=== PATIENT | male | born 1985 | race African-American/Black ===

== ENCOUNTER 2016-11-26 20:55 | Emergency (ER) | payer OTHER ==
[~2016-11-26] VITALS: Ht 182.9 cm; Wt 128.4 kg
[~2016-11-26 20:55] MED LIST: ACET-1256 PO; ASPI325T39 PO; FLX10 PO; RXC5 PO; WLLXL300 PO; [UNRECOGNIZED DRUG - CODE] PO
[2016-11-26 21:21] VITALS: TEMP 36.7; Ht 182.9 cm; Wt 128.4 kg
[2016-11-26] MEDS ORDERED: KETOROLAC TROMETHAMINE 30 MG/ML VIAL IV STA (22:29)
[2016-11-26] MEDS ORDERED: OPTIRAY 320 IV PRN (22:45)
[2016-11-26 22:59] LABS: BASO % 0.2 %; BASO ABS # 0.01 K/uL (0-0.2); COMPLETE YES; IG% 0.2 %; LYMPH % 34.6 %; LYMPH ABS # 1.89 K/uL (1.2-3.4); MEAN CELL VOLUME 81.9 fL (80-100); MEAN CORPUSCULAR HEMOGLOBIN 28.4 pg (25-34); MEAN CORPUSCULAR HGB CONC 34.7 g/dl (32-36); MEAN PLATELET VOLUME 10.5 fL (7.4-10.4); MONO % 6.6 %; NEUT % 54.4 %; PLATELET COUNT 271 K/uL (130-400); RED BLOOD COUNT 5.25 M/uL (4.7-6.1); WHITE BLOOD COUNT 5.47 K/uL (4.8-10.8)
[2016-11-26] MEDS ORDERED: MULT-513 PO (23:03)
[2016-11-26] MEDS ORDERED: GLUCTAB18 PO (23:03)
[2016-11-26 23:16] LABS: BLOOD UREA NITROGEN 8 mg/dl (7-18); BUN/CREATININE RATIO 6.5 (10-20); C-REACTIVE PROTEIN < 0.29 mg/dl (0-0.29); CALCIUM 8.8 mg/dl (8.5-10.1); CARBON DIOXIDE 29 mmol/L (21-32); CHLORIDE 110 mmol/L (98-107); GLUCOSE 97 mg/dl (70-99); POTASSIUM 3.9 mmol/L (3.5-5.1); SODIUM 143 mmol/L (136-145)
[2016-11-27] MEDS ORDERED: CEFTRIAXONE SOD INJ 1 GM ADDVIAL IV STA (00:31)
--- NOTE | 2016-11-27 00:34 | EMERGENCY ROOM VISIT NOTE ---
ED Visit Note First contact with patient: 22:21 Staff note: I have seen and examined this patient. I have discussed this case with my PA and generally agree with the ED note and findings.
[2016-11-27] MEDS ORDERED: CEPHALEXIN 500MG HOME PACK 1 EA BTL PO ONE (00:45)
[2016-11-27] MEDS ORDERED: CEPH500C2 PO (01:10)
--- NOTE | 2016-11-27 01:16 | EMERGENCY ROOM VISIT NOTE ---
History First contact with patient: 22:21 Chief Complaint: NECK PAIN Stated Complaint: PUFFY NECK ON RT SIDE History of Present Illness The patient is a 31 year old male who presents to the Emergency Room with complaints of right-sided neck pain and swelling has been picking at a pimple to this area for the past few days to this area. Patient states he had a little bit of pus that came out of the pimple. Patient denies injury to this area, chest pain, dyspnea, neck stiffness, sore throat, cough, congestion, abdominal pain, night sweats, weight loss. He is tolerating by mouth fluids and food. No dysphasia. Review of Systems See HPI for pertinent positives & negatives. A total of 10 systems reviewed and were otherwise negative. Past Medical/Surgical History Medical Problems: (1) ASTHMA, UNSPECIFIED (2) BIPOL I DIS, MOST RECENT EPIS (OR CURRENT) MANIC, UNSPEC (3) FAM HX-DIABETES MELLITUS (4) FAM HX-PSYCHIATRIC COND (5) FAMILY HISTORY OF OTHER CARDIOVASCULAR DISEASES (6) HOMICIDAL IDEATION (7) HYPERTENSION NOS (8) Lumbar stenosis with neurogenic claudication (9) MIGRAINE UNSPECIFIED W/O INTRACT MGRN W/O STATUS MIGRAINOSUS (10) Schizoaffective disorder (11) SUICIDAL IDEATION (12) TOBACCO USE DISORDER Family History Diabetes mellitus Hypertension Social History Smoking Status: Current Every Day Smoker Alcohol Use: none Drug Use: none Marital Status: single Occupation Status: disabled Current/Historical Medications Scheduled Aspirin (Aspirin Ec), 650 MG PO PRN Cephalexin Monohydrate (Keflex), 500 MG PO QID Glucosamine-Chondroitin (Osteo Bi-Flex Regular Str), 1 TAB PO DAILY Multivitamins/Minerals (Mvi With Minerals), 1 TAB PO DAILY Allergies Coded Allergies: Risperidone (Verified Allergy, Severe, TONGUE SWELLS UP, 10/24/15) Beet (Verified Adverse Reaction, Unknown, VOMITS, 10/24/15) Fentanyl (Unverified Adverse Reaction, Unknown, constipation and vomiting , 10/24/15) Physical Exam Vital Signs Date Time Temp Pulse Resp B/P Pulse Ox O2 Delivery O2 Flow Rate FiO2 11/26/16 22:43 57 16 133/76 96 Room Air 11/26/16 21:21 36.7 55 20 128/81 96 Room Air Physical Exam VITALS: Vitals are noted on the nurse's note and reviewed by myself. Vital signs stable. GENERAL: Pleasant male, in no acute distress, nondiaphoretic, well-developed well-nourished. SKIN: Right-sided anterior neck with small papule that is slightly erythematous concerning for infection The rest of the skin was without rashes, erythema, edema, or bruising. There is no tenting of the skin. Capillary reflex less than 2 seconds. HEAD: Normocephalic atraumatic. EARS: External auditory canals clear, tympanic membranes pearly nettles without erythema or effusion bilaterally. EYES: Pupils equal round and reactive to light and accommodation. Conjunctivae without injection, sclerae without icterus. Extraocular movements intact. NOSE: Patent, turbinates without inflammation or discharge. No sinus tenderness. MOUTH: Mucous membranes moist. Pharynx without erythema or exudate. Uvula midline. Airway patent. Tongue does not deviate. NECK: Supple without nuchal rigidity. Right-sided cervical lymphadenopathy. No thyromegaly. Cervical spine is nontender. No JVD. No meningeal signs HEART: Regular rate and rhythm without murmurs gallops or rubs. LUNGS: Clear to auscultation bilaterally without wheezes, rales or rhonchi. No dullness to percussion. No retractions or accessory muscle use. ABDOMEN: Positive bowel sounds x 4. Normal tympanic percussion. Soft, nontender, without masses or organomegaly. Sierra sign negative. No guarding or rebound tenderness. MUSCULOSKELETAL: No muscle atrophy, erythema, or edema noted. NEURO: Patient was alert and oriented to person place and time. Normal sensation to light and sharp touch. No focal neurological deficits. Medical Decision & Procedures Laboratory Results 11/26/16 22:45 Red Blood Count 5.25, Mean Corpuscular Volume 81.9, Mean Corpuscular Hemoglobin 28.4, Mean Corpuscular Hemoglobin Concent 34.7, Mean Platelet Volume 10.5, Neutrophils (%) (Auto) 54.4, Lymphocytes (%) (Auto) 34.6, Monocytes (%) (Auto) 6.6, Eosinophils (%) (Auto) 4.0, Basophils (%) (Auto) 0.2, Neutrophils # (Auto) 2.98, Lymphocytes # (Auto) 1.89, Monocytes # (Auto) 0.36, Eosinophils # (Auto) 0.22, Basophils # (Auto) 0.01 11/26/16 22:45 Test 11/26/16 22:45 White Blood Count 5.47 K/uL (4.8-10.8) Red Blood Count 5.25 M/uL (4.7-6.1) Hemoglobin 14.9 g/dL (14.0-18.0) Hematocrit 43.0 % (42-52) Mean Corpuscular Volume 81.9 fL (80-100) Mean Corpuscular Hemoglobin 28.4 pg (25-34) Mean Corpuscular Hemoglobin Concent 34.7 g/dl (32-36) Platelet Count 271 K/uL (130-400) Mean Platelet Volume 10.5 fL (7.4-10.4) Neutrophils (%) (Auto) 54.4 % Lymphocytes (%) (Auto) 34.6 % Monocytes (%) (Auto) 6.6 % Eosinophils (%) (Auto) 4.0 % Basophils (%) (Auto) 0.2 % Neutrophils # (Auto) 2.98 K/uL (1.4-6.5) Lymphocytes # (Auto) 1.89 K/uL (1.2-3.4) Monocytes # (Auto) 0.36 K/uL (0.11-0.59) Eosinophils # (Auto) 0.22 K/uL (0-0.5) Basophils # (Auto) 0.01 K/uL (0-0.2) RDW Standard Deviation 41.4 fL (36.4-46.3) RDW Coefficient of Variation 13.9 % (11.5-14.5) Immature Granulocyte % (Auto) 0.2 % Immature Granulocyte # (Auto) 0.01 K/uL (0.00-0.02) Erythrocyte Sedimentation Rate 5 mm/hr (0-14) Anion Gap 4.0 mmol/L (3-11) Est Creatinine Clear Calc Drug Dose 111.9 ml/min Estimated GFR () 83.1 Estimated GFR (Non- 71.7 BUN/Creatinine Ratio 6.5 (10-20) Calcium Level 8.8 mg/dl (8.5-10.1) C-Reactive Protein < 0.29 mg/dl (0-0.29) Medications Administered Medications (Trade) Dose Ordered Sig/Thalia Route Start Time Stop Time Status Last Admin Dose Admin Ketorolac Tromethamine (Toradol Inj) 30 mg NOW STAT IV 11/26/16 22:29 11/26/16 22:31 DC 11/26/16 22:44 30 MG Ceftriaxone Sodium (Rocephin Inj) 1 gm NOW STAT IV 11/27/16 00:31 11/27/16 00:33 DC 11/27/16 00:53 1 GM ED Course Prior records reviewed and summarized as above. Triage Nursing notes reviewed. The patient's history was concerning for swelling and redness of the skin. Differential diagnosis: Etiologies such as cellulitis, enlarged lymph node, abscess, MRSA infection, folliculitis, dermatitis, drug eruption, as well as others were entertained.. Physical examination: As above ER treatment provided: Rocephin On reassessment the patient felt better. Diagnostics interpreted by me: The labs revealed no worrisome leukocytosis or electrolyte abnormality Imaging studies: CT was reviewed and read by stat radiology This appears to be isolated cellulitis with reactive lymph nodes to the neck on the right side. Patient was started on antibiotics. He is advised to avoid squeezing at the area. He is advised follow-up family care in a few days or here in the ER sooner for severe pain, spreading infection, fevers, neck stiffness, worsening signs or symptoms or as needed. Patient had no signs of meningitis. He is well-appearing. By the evaluation outlined above emergent etiologies such as abscess, as well as others were deemed relatively unlikely. The pt informed about the findings as listed above. All questions were answered and pleased with the treatment. Return instructions were outlined and the patient was discharged in stable condition. Outpatient prescription management: Keflex Referral: The patient was referred back to primary care physician for follow-up in 2 to 3 days for a recheck of the current condition. Case reviewed with my attending Medical Decision As above Impression Primary Impression: Cellulitis of neck Departure Information Dispostion Home / Self-Care Condition GOOD Prescriptions Cephalexin Monohydrate (KEFLEX) 500 Mg Cap 500 MG PO QID for 9 Days, #36 CAP Prov: Princess Diana PA-C 11/27/16 Forms WORK / SCHOOL INSTRUCTIONS, HOME CARE DOCUMENTATION FORM, IMPORTANT VISIT INFORMATION Patient Instructions Cellulitis - [facility], My [facility] Additional Instructions Cephalexin(Keflex) 500mg: Take one pill four times daily for 10 days for your skin infection. All antibiotics can cause diarrhea. If this occurs and you feel worse or it does not resolve in 1-2 days follow up with your doctor or return to the Emergency Department as this could be signs of serious underlying problems. Any medication can cause an allergic reaction, stop the pills immediately and return to the ER for rash, hives, breathing difficulties, or swelling. Ibuprofen(Motrin, Advil) may be used for fever or pain. Use 600mg every six hours as needed. Take with food. Avoid using more than 2400mg in a 24 hour period. Do not use 2400mg per day for more than three consecutive days without physician direction. Prolonged inappropriate use can lead to stomach upset or ulcers. (AND/OR) Acetaminophen(Tylenol) may be used for fever or pain. Use 1000mg every six hours as needed. Avoid using more than 3000mg in a 24 hour period. Warm compresses to the affected area 4 times daily for 15-20 minutes. Rest and drink plenty of fluids. Continue current medications. Return to the ER for severe pain, persistent fevers, spreading redness, or any worsening of your condition. Follow up with your primary physician within 2-3 days for a recheck of the current condition.
[2016-11-27 01:20] VITALS: BP 129/84; PULSE 55; O2SAT 97
--- NOTE | 2016-11-27 07:37 | DIAGNOSTIC IMAGING REPORT ---
CT NECK WITH INTRAVENOUS CONTRAST HISTORY: right lower neck swelling, ? mass/lymphnode/infx TECHNIQUE: Multiaxial CT images of the neck were performed following the use of intravenous contrast. COMPARISON STUDY: None. FINDINGS: The visualized brain parenchyma and orbits are unremarkable. The pterygopalatine fossa are well-maintained. The major mucosal airway surfaces are intact. The thyroid gland enhances normally. The parotid and submandibular glands are symmetric. Prevertebral soft tissues and the epiglottis are normal in thickness. The lungs are clear. Paranasal sinuses and mastoid air cells are clear. Lucent lesion within the C5 vertebral body favors a hemangioma. There is subcutaneous trace fast stranding within the right lower neck surrounding the common carotid and internal jugular vein. This extends into the right supraclavicular and infraclavicular locations. There are mildly enlarged right supraclavicular lymph nodes measuring up to 1.1 cm. No loculated fluid collections to suggest an abscess. No cervical lymphadenopathy. The carotid and internal jugular veins appear patent. IMPRESSION: 1. Subcutaneous fat stranding within the right lower neck which extends into the right supraclavicular and infraclavicular locations. There are mildly enlarged right supraclavicular lymph nodes. No loculated fluid collections to suggest an abscess. This is nonspecific but favors infectious/inflammatory process. Neoplastic process considered less likely. However, recommend follow-up to ensure resolution. 2. In addition, consider right upper extremity venous Doppler study to exclude the less likely possibility of a subclavian vein thrombosis. The right internal jugular vein is patent. Electronically signed by: Adair Echeverria M.D. 11/27/2016 7:35 AM Dictated Date/Time: 11/27/2016 7:28 AM
[2016-11-28] MEDS ORDERED: CLIN300C10 PO (09:55)
== END 2016-11-27 01:19 | disposition home or self-care (01) ==
LOC: C.EDB 20:56 → C.EDA 11-27 01:19
DX: L03.221 Cellulitis of neck (principal); J45.909 Unspecified asthma, uncomplicated; F31.9 Bipolar disorder, unspecified; I10 Essential (primary) hypertension; M48.06 Spinal stenosis, lumbar region; G43.909 Migraine, unspecified, not intractable, without status migrainosus; F25.9 Schizoaffective disorder, unspecified; Z91.5 Personal history of self-harm; F17.210 Nicotine dependence, cigarettes, uncomplicated; Z79.82 Long term (current) use of aspirin; Z79.899 Other long term (current) drug therapy; Z83.3 Family history of diabetes mellitus; Z82.49 Family history of ischemic heart disease and other diseases of the circulatory system

== ENCOUNTER 2016-11-28 01:15 | Inpatient (IN) | payer OTHER ==
[~2016-11-28] VITALS: Ht 182.9 cm; Wt 127.0 kg
[~2016-11-28 01:15] MED LIST changes: -ACET-1256 PO; +CEPH500C2 PO; -FLX10 PO; +GLUCTAB18 PO; +MULT-513 PO; -RXC5 PO; -WLLXL300 PO; -[UNRECOGNIZED DRUG - CODE] PO
[2016-11-28] MEDS ORDERED: KETOROLAC TROMETHAMINE 30 MG/ML VIAL IV STA (01:25)
[2016-11-28] MEDS ORDERED: CLINDAMYCIN IV 900 MG in DEXTROSE 5% ADD-VANTAGE 100ML 100 ML IV ONE (01:30)
[2016-11-28] MEDS ORDERED: DEXAMETHASONE SOD INJ 10 MG/ML VIAL IV ONE (01:30)
[2016-11-28 02:07] LABS: BASO % 0.2 %; BASO ABS # 0.01 K/uL (0-0.2); COMPLETE YES; EOS % 2.6 %; HEMATOCRIT 41.3 % (42-52); IG% 0.2 %; LYMPH % 30.3 %; LYMPH ABS # 1.75 K/uL (1.2-3.4); MEAN CELL VOLUME 81.1 fL (80-100); MEAN CORPUSCULAR HEMOGLOBIN 28.5 pg (25-34); MEAN CORPUSCULAR HGB CONC 35.1 g/dl (32-36); MEAN PLATELET VOLUME 10.5 fL (7.4-10.4); MONO % 5.2 %; NEUT % 61.5 %; PLATELET COUNT 246 K/uL (130-400); RED BLOOD COUNT 5.09 M/uL (4.7-6.1); WHITE BLOOD COUNT 5.77 K/uL (4.8-10.8)
[2016-11-28 02:20] LABS: BLOOD UREA NITROGEN 8 mg/dl (7-18); BUN/CREATININE RATIO 6.6 (10-20); CALCIUM 8.7 mg/dl (8.5-10.1); CARBON DIOXIDE 26 mmol/L (21-32); CHLORIDE 109 mmol/L (98-107); GLUCOSE 95 mg/dl (70-99); POTASSIUM 3.9 mmol/L (3.5-5.1); SODIUM 144 mmol/L (136-145)
--- NOTE | 2016-11-28 04:40 | EMERGENCY ROOM VISIT NOTE ---
History First contact with patient: 01:21 Chief Complaint: NECK PAIN Stated Complaint: BIG LUMP ON SIDE OF NECK - GETTING BIGGER History of Present Illness The patient is a 31 year old male who presents to the Emergency Room with complaints of increasing right-sided neck pain and swelling is extending to his clavicular area. He was started on antibiotics by myself yesterday. Symptoms got progressively worse. Patient initially was picking at a pimple to this area and had some pus that came out. No history of MRSA. He has been taking his antibiotics as directed. Patient denies chest pain, dyspnea, neck stiffness , biceps swelling, trauma to the area. Patient states he was lifting weights heavily last week. Tetanus is current. Review of Systems See HPI for pertinent positives & negatives. A total of 10 systems reviewed and were otherwise negative. Past Medical/Surgical History Medical Problems: (1) ASTHMA, UNSPECIFIED (2) BIPOL I DIS, MOST RECENT EPIS (OR CURRENT) MANIC, UNSPEC (3) Cellulitis, neck (4) FAM HX-DIABETES MELLITUS (5) FAM HX-PSYCHIATRIC COND (6) FAMILY HISTORY OF OTHER CARDIOVASCULAR DISEASES (7) HOMICIDAL IDEATION (8) HYPERTENSION NOS (9) Lumbar stenosis with neurogenic claudication (10) MIGRAINE UNSPECIFIED W/O INTRACT MGRN W/O STATUS MIGRAINOSUS (11) Schizoaffective disorder (12) SUICIDAL IDEATION (13) TOBACCO USE DISORDER Family History Diabetes mellitus Hypertension Social History Smoking Status: Current Every Day Smoker Alcohol Use: none Drug Use: none Marital Status: single Occupation Status: disabled Current/Historical Medications Scheduled Aspirin (Aspirin Ec), 650 MG PO PRN Cephalexin Monohydrate (Keflex), 500 MG PO QID Glucosamine-Chondroitin (Osteo Bi-Flex Regular Str), 1 TAB PO DAILY Multivitamins/Minerals (Mvi With Minerals), 1 TAB PO DAILY Allergies Coded Allergies: Risperidone (Verified Allergy, Severe, TONGUE SWELLS UP, 10/24/15) Beet (Verified Adverse Reaction, Unknown, VOMITS, 10/24/15) Fentanyl (Unverified Adverse Reaction, Unknown, constipation and vomiting , 10/24/15) Physical Exam Vital Signs Date Time Temp Pulse Resp B/P Pulse Ox O2 Delivery O2 Flow Rate FiO2 11/28/16 04:35 59 16 133/69 98 Room Air 11/28/16 02:55 49 16 113/67 98 Room Air 11/28/16 01:17 36.6 44 16 134/85 98 Room Air Physical Exam VITALS: Vitals are noted on the nurse's note and reviewed by myself. Vital signs stable. GENERAL: Pleasant male, in no acute distress, nondiaphoretic, well-developed well-nourished. SKIN: The skin was without rashes, erythema, edema, or bruising. There is no tenting of the skin. Capillary reflex less than 2 seconds. HEAD: Normocephalic atraumatic. EARS: External auditory canals clear, tympanic membranes pearly nettles without erythema or effusion bilaterally. EYES: Pupils equal round and reactive to light and accommodation. Conjunctivae without injection, sclerae without icterus. Extraocular movements intact. NOSE: Patent, turbinates without inflammation or discharge. No sinus tenderness. MOUTH: Mucous membranes moist. Pharynx without erythema or exudate. Uvula midline. Airway patent. Tongue does not deviate. NECK: Supple without nuchal rigidity. Right-sided cervical lymphadenopathy. Right supraclavicular lymph node enlargement No thyromegaly. Cervical spine is nontender. No JVD. HEART: Regular rate and rhythm without murmurs gallops or rubs. LUNGS: Clear to auscultation bilaterally without wheezes, rales or rhonchi. No dullness to percussion. No retractions or accessory muscle use. ABDOMEN: Positive bowel sounds x 4. Normal tympanic percussion. Soft, nontender, without masses or organomegaly. Sierra sign negative. No guarding or rebound tenderness. MUSCULOSKELETAL: No muscle atrophy, erythema, or edema noted. Radial pulses + 2 equal present bilaterally. Right arm without edema and nontender to palpation. NEURO: Patient was alert and oriented to person place and time. Normal sensation to light and sharp touch. No focal neurological deficits. Medical Decision & Procedures Laboratory Results 11/28/16 01:48 Red Blood Count 5.09, Mean Corpuscular Volume 81.1, Mean Corpuscular Hemoglobin 28.5, Mean Corpuscular Hemoglobin Concent 35.1, Mean Platelet Volume 10.5, Neutrophils (%) (Auto) 61.5, Lymphocytes (%) (Auto) 30.3, Monocytes (%) (Auto) 5.2, Eosinophils (%) (Auto) 2.6, Basophils (%) (Auto) 0.2, Neutrophils # (Auto) 3.55, Lymphocytes # (Auto) 1.75, Monocytes # (Auto) 0.30, Eosinophils # (Auto) 0.15, Basophils # (Auto) 0.01 11/28/16 01:48 Test 11/28/16 01:48 11/28/16 01:54 White Blood Count 5.77 K/uL (4.8-10.8) Red Blood Count 5.09 M/uL (4.7-6.1) Hemoglobin 14.5 g/dL (14.0-18.0) Hematocrit 41.3 % (42-52) Mean Corpuscular Volume 81.1 fL (80-100) Mean Corpuscular Hemoglobin 28.5 pg (25-34) Mean Corpuscular Hemoglobin Concent 35.1 g/dl (32-36) Platelet Count 246 K/uL (130-400) Mean Platelet Volume 10.5 fL (7.4-10.4) Neutrophils (%) (Auto) 61.5 % Lymphocytes (%) (Auto) 30.3 % Monocytes (%) (Auto) 5.2 % Eosinophils (%) (Auto) 2.6 % Basophils (%) (Auto) 0.2 % Neutrophils # (Auto) 3.55 K/uL (1.4-6.5) Lymphocytes # (Auto) 1.75 K/uL (1.2-3.4) Monocytes # (Auto) 0.30 K/uL (0.11-0.59) Eosinophils # (Auto) 0.15 K/uL (0-0.5) Basophils # (Auto) 0.01 K/uL (0-0.2) RDW Standard Deviation 40.6 fL (36.4-46.3) RDW Coefficient of Variation 13.5 % (11.5-14.5) Immature Granulocyte % (Auto) 0.2 % Immature Granulocyte # (Auto) 0.01 K/uL (0.00-0.02) Anion Gap 9.0 mmol/L (3-11) Est Creatinine Clear Calc Drug Dose 121.5 ml/min Estimated GFR () 91.5 Estimated GFR (Non- 79.0 BUN/Creatinine Ratio 6.6 (10-20) Calcium Level 8.7 mg/dl (8.5-10.1) Bedside Lactic Acid Venous 1.05 mmol/L (0.90-1.70) Medications Administered Medications (Trade) Dose Ordered Sig/Thalia Route Start Time Stop Time Status Last Admin Dose Admin Clindamycin Phosphate/Dextrose (Cleocin Iv/ Dextrose Add-Callao 100ML) 106 ml @ 100 mls/hr ONE ONCE IV 11/28/16 01:30 11/28/16 02:33 DC 11/28/16 01:52 100 MLS/HR Dexamethasone Sodium Phosphate (Decadron Inj) 10 mg NOW ONCE IV 11/28/16 01:30 11/28/16 01:31 DC 11/28/16 01:45 10 MG Ketorolac Tromethamine (Toradol Inj) 30 mg NOW STAT IV 11/28/16 01:25 11/28/16 01:28 DC 11/28/16 01:44 30 MG ED Course Prior records reviewed and summarized as above. Triage Nursing notes reviewed. The patient's history was concerning for swelling and redness of the skin. Differential diagnosis: Etiologies such as cellulitis, abscess, MRSA infection, DVT, necrotizing fasciitis, dermatitis, drug eruption, as well as others were entertained.. Physical examination: As above ER treatment provided: Clindamycin, Decadron, Toradol On reassessment the patient felt better. Diagnostics interpreted by me: The labs revealed no worrisome leukocytosis or electrolyte abnormality Imaging studies: Ultrasound negative for DVT per radiology CT from yesterday was reviewed and showed discrepancies from the stat Radiology report. Ultrasound was then ordered of the arm for rule out DVT CT NECK WITH INTRAVENOUS CONTRAST HISTORY: right lower neck swelling, ? mass/lymphnode/infx TECHNIQUE: Multiaxial CT images of the neck were performed following the use of intravenous contrast. COMPARISON STUDY: None. FINDINGS: The visualized brain parenchyma and orbits are unremarkable. The pterygopalatine fossa are well-maintained. The major mucosal airway surfaces are intact. The thyroid gland enhances normally. The parotid and submandibular glands are symmetric. Prevertebral soft tissues and the epiglottis are normal in thickness. The lungs are clear. Paranasal sinuses and mastoid air cells are clear. Lucent lesion within the C5 vertebral body favors a hemangioma. There is subcutaneous trace fast stranding within the right lower neck surrounding the common carotid and internal jugular vein. This extends into the right supraclavicular and infraclavicular locations. There are mildly enlarged right supraclavicular lymph nodes measuring up to 1.1 cm. No loculated fluid collections to suggest an abscess. No cervical lymphadenopathy. The carotid and internal jugular veins appear patent. IMPRESSION: 1. Subcutaneous fat stranding within the right lower neck which extends into the right supraclavicular and infraclavicular locations. There are mildly enlarged right supraclavicular lymph nodes. No loculated fluid collections to suggest an abscess. This is nonspecific but favors infectious/inflammatory process. Neoplastic process considered less likely. However, recommend follow-up to ensure resolution. 2. In addition, consider right upper extremity venous Doppler study to exclude the less likely possibility of a subclavian vein thrombosis. The right internal jugular vein is patent. Electronically signed by: Adair Echeverria M.D. Consultation: A consultation was placed with jyoti Salguero, hospitalist. The case was discussed and diagnostics were reviewed. The patient was evaluated in the ER for further treatment. This appears to be right-sided lymphadenopathy with cellulitis. No DVT on ultrasound. Patient's swelling is getting progressively worse. His lymph nodes are now swollen over the supraclavicular area. He will be evaluated by medicine for possible admission. He was switched stress stronger antibiotic of clindamycin for MRSA coverage. By the evaluation outlined above emergent etiologies such as abscess, necrotizing fasciitis, DVT, as well as others were deemed relatively unlikely. The pt informed about the findings as listed above. All questions were answered and pleased with the treatment. Case reviewed with my attending Medical Decision As above Impression Primary Impression: Lymphadenopathy, cervical Additional Impression: Cellulitis, neck Departure Information Dispostion Being Evaluated By Hospitalist Condition FAIR Referrals No Doctor, Assigned (PCP) Patient Instructions My [facility] Problem Qualifiers
--- NOTE | 2016-11-28 04:40 | History and Physical ---
History & Physical Date & Time of Service: Nov 28, 2016 at 04:39 Chief Complaint: Big Lump On Side Of Neck - Getting Bigger Primary Care Physician: No Doctor, Assigned History of Present Illness Source: patient The patient is a 31 year old male who presents to the Emergency Room with complaints of increasing right-sided neck pain and swelling is extending to his clavicular area. He was seen in ED yesterday for similar problem mentions that for the past 3 days he noticed pain and discomfort on rt neck area , not aware of any insect bite CT of neck done yesterday -was negative for abscess , extensive soft tissue swelling -suggestive of localized cellulitis pt was discharged home with PO Keflex pt reports of taking Po Abx , but felt his pain discomfort and swelling on rt side of neck was worse also noticed 2 small insect bite on rt shoulder , was very concerned for possible spider bite came to ER for evaluation in the ED pt was afebrile, normal white count , ESR, CRP was wnl RT upper ext USG was negative for DVT pt doses not have any established family physician ( saw Dr Stroud in [facility] clinic one time ) pt admitted for possible out pt failed treatment for rt neck cellulitis . Past Medical/Surgical History Medical Problems: (1) ASTHMA, UNSPECIFIED Status: Chronic (2) BIPOL I DIS, MOST RECENT EPIS (OR CURRENT) MANIC, UNSPEC Status: Chronic (3) FAM HX-DIABETES MELLITUS Status: Chronic (4) FAM HX-PSYCHIATRIC COND Status: Chronic (5) FAMILY HISTORY OF OTHER CARDIOVASCULAR DISEASES Status: Chronic (6) HOMICIDAL IDEATION Status: Chronic (7) HYPERTENSION NOS Status: Chronic (8) MIGRAINE UNSPECIFIED W/O INTRACT MGRN W/O STATUS MIGRAINOSUS Status: Chronic (9) Schizoaffective disorder Status: Chronic (10) SUICIDAL IDEATION Status: Chronic (11) TOBACCO USE DISORDER Status: Chronic Family History Diabetes mellitus Hypertension Social History Smoking Status: Current Every Day Smoker Drug Use: none Marital Status: single Housing status: lives with family Occupational Status: disabled Immunizations History of Influenza Vaccine: No History of Tetanus Vaccine?: Yes Tetanus Immunization Date: Aug 29, 2010 History of Pneumococcal: No History of Hepatitis B Vaccine: Yes Multi-Drug Resistant Organisms History of MDRO: No Allergies Coded Allergies: Risperidone (Verified Allergy, Severe, TONGUE SWELLS UP, 10/24/15) Beet (Verified Adverse Reaction, Unknown, VOMITS, 10/24/15) Fentanyl (Unverified Adverse Reaction, Unknown, constipation and vomiting , 10/24/15) Home Medications Scheduled Aspirin (Aspirin Ec), 650 MG PO PRN Cephalexin Monohydrate (Keflex), 500 MG PO QID Glucosamine-Chondroitin (Osteo Bi-Flex Regular Str), 1 TAB PO DAILY Multivitamins/Minerals (Mvi With Minerals), 1 TAB PO DAILY Review of Systems Constitutional: No chills, No fatigue, No fever, No problem reported, No sweats , No weakness, No weight loss ENT: + problem reported (rt neck swelling , pain , tenderness ) Respiratory: No cough, No dyspnea at rest, No dyspnea on exertion, No hemoptysis, No problem reported, No shortness of breath, No sputum, No wheezing Cardiovascular: No PND, No chest pain, No claudication, No edema, No orthopnea , No palpitations, No problem reported Abdomen: No GI bleeding, No constipation, No diarrhea, No nausea, No pain, No problem reported, No vomiting Musculoskeletal: No calf pain, No joint pain, No muscle pain, No problem reported, No swelling Neurologic: No balance problems, No memory loss, No numbness/tingling, No paralysis, No problem reported, No vertigo, No weakness Physical Exam Vital Signs Date Time Temp Pulse Resp B/P Pulse Ox O2 Delivery O2 Flow Rate FiO2 11/28/16 04:35 59 16 133/69 98 Room Air 11/28/16 02:55 49 16 113/67 98 Room Air 11/28/16 01:17 36.6 44 16 134/85 98 Room Air General Appearance: no apparent distress Head: normocephalic, atraumatic Eyes: sclerae normal ENT: + pertinent finding (rt sided neck minimum swelling , tenderness, no increases warmth noted, cervical lymphadenopathy ) Neck: + adenopathy present (cervical LN ) Respiratory/Chest: chest non-tender, lungs clear, normal breath sounds Cardiovascular: regular rate, rhythm Abdomen/GI: non tender, soft Extremities/Musculoskelatal: no pedal edema Neurologic/Psych: alert, normal mood/affect, oriented x 3 Skin: + pertinent finding (small round spots on rt shoulder calvicular area , no area of inflammation , induration noted ) Diagnostics Laboratory Results Results Past 24 Hours Test 11/28/16 01:48 11/28/16 01:54 Range/Units White Blood Count 5.77 4.8-10.8 K/uL Red Blood Count 5.09 4.7-6.1 M/uL Hemoglobin 14.5 14.0-18.0 g/dL Hematocrit 41.3 42-52 % Mean Corpuscular Volume 81.1 80-100 fL Mean Corpuscular Hemoglobin 28.5 25-34 pg Mean Corpuscular Hemoglobin Concent 35.1 32-36 g/dl Platelet Count 246 130-400 K/uL Mean Platelet Volume 10.5 7.4-10.4 fL Neutrophils (%) (Auto) 61.5 % Lymphocytes (%) (Auto) 30.3 % Monocytes (%) (Auto) 5.2 % Eosinophils (%) (Auto) 2.6 % Basophils (%) (Auto) 0.2 % Neutrophils # (Auto) 3.55 1.4-6.5 K/uL Lymphocytes # (Auto) 1.75 1.2-3.4 K/uL Monocytes # (Auto) 0.30 0.11-0.59 K/uL Eosinophils # (Auto) 0.15 0-0.5 K/uL Basophils # (Auto) 0.01 0-0.2 K/uL RDW Standard Deviation 40.6 36.4-46.3 fL RDW Coefficient of Variation 13.5 11.5-14.5 % Immature Granulocyte % (Auto) 0.2 % Immature Granulocyte # (Auto) 0.01 0.00-0.02 K/uL Sodium Level 144 136-145 mmol/L Potassium Level 3.9 3.5-5.1 mmol/L Chloride Level 109 98-107 mmol/L Carbon Dioxide Level 26 21-32 mmol/L Anion Gap 9.0 3-11 mmol/L Blood Urea Nitrogen 8 7-18 mg/dl Creatinine 1.20 0.60-1.40 mg/dl Est Creatinine Clear Calc Drug Dose 121.5 ml/min Estimated GFR () 91.5 Estimated GFR (Non- 79.0 BUN/Creatinine Ratio 6.6 10-20 Random Glucose 95 70-99 mg/dl Calcium Level 8.7 8.5-10.1 mg/dl Bedside Lactic Acid Venous 1.05 0.90-1.70 mmol/L Diagnostic Radiology CT NECK WITH INTRAVENOUS CONTRAST 11/26/16 TECHNIQUE: Multiaxial CT images of the neck were performed following the use of intravenous contrast. COMPARISON STUDY: None. FINDINGS: The visualized brain parenchyma and orbits are unremarkable. The pterygopalatine fossa are well-maintained. The major mucosal airway surfaces are intact. The thyroid gland enhances normally. The parotid and submandibular glands are symmetric. Prevertebral soft tissues and the epiglottis are normal in thickness. The lungs are clear. Paranasal sinuses and mastoid air cells are clear. Lucent lesion within the C5 vertebral body favors a hemangioma. There is subcutaneous trace fast stranding within the right lower neck surrounding the common carotid and internal jugular vein. This extends into the right supraclavicular and infraclavicular locations. There are mildly enlarged right supraclavicular lymph nodes measuring up to 1.1 cm. No loculated fluid collections to suggest an abscess. No cervical lymphadenopathy. The carotid and internal jugular veins appear patent. IMPRESSION: 1. Subcutaneous fat stranding within the right lower neck which extends into the right supraclavicular and infraclavicular locations. There are mildly enlarged right supraclavicular lymph nodes. No loculated fluid collections to suggest an abscess. This is nonspecific but favors infectious/inflammatory process. Neoplastic process considered less likely. However, recommend follow-up to ensure resolution. 2. In addition, consider right upper extremity venous Doppler study to exclude the less likely possibility of a subclavian vein thrombosis. The right internal jugular vein is patent. RIGHT UPPER EXTREMITY USG : STAT RAD : no evidence of DVT Impression Assessment and Plan RT NECK CELLULITIS : no evidence of abscess as per CT neck clinical exam shows no fluctuations pt is concern for possible bug bite /spider bite causing worsening of pain was seen in ED yesterday discharged home with PO Keflex feels the swelling has got progressively worse no fever or chills , normal white count no evidence of sepsis Abx changed to PO Clindamycin ( no clinical improvement with Po Keflex ) rt upper ext USG negative for DVT ordered for Lyme titer FULL CODE DVT PROPHYLAXIS : low risk scd and teds ambulate DISPOSITION ; discharge home when medically stable pt does not have any family physician established VTE Prophylaxis VTE Risk Assessment Done? Y/N: Yes Risk Level: Low Given or contraindicated: T.E.D. Stockings, SCD's
[2016-11-28] MEDS ORDERED: MAGNESIUM HYDROXIDE SUSP 30 ML UDC PO PRN (04:45)
[2016-11-28] MEDS ORDERED: ALUMINUM/MAGNESIUM/SIMETH (MAALOX MAX) 30 ML UDC PO PRN (04:45)
[2016-11-28] MEDS ORDERED: ACETAMINOPHEN 325 MG TAB PO PRN (04:45)
[2016-11-28] MEDS ORDERED: ONDANSETRON INJ 2 MG/ML 2 ML VIAL IV PRN (04:45)
[2016-11-28] MEDS ORDERED: POLYETHYLENE (MIRALAX) 17 GM PACK PO PRN (04:45)
[2016-11-28] MEDS ORDERED: MoRPHine SULFATE 2 MG/ML CARP IV PRN (04:45)
[2016-11-28 04:58] LABS: C-REACTIVE PROTEIN < 0.29 mg/dl (0-0.29)
[2016-11-28 05:40] VITALS: BP 150/81; PULSE 54; TEMP 36.7; O2SAT 96; Ht 182.9 cm; Wt 127.0 kg
[2016-11-28] MEDS ORDERED: SODIUM CHLORIDE 0.9% 1000ML 1,000 ML IV SCH (06:00)
[2016-11-28] MEDS ORDERED: CLINDAMYCIN HCL 150 MG CAP PO SCH (06:00)
--- NOTE | 2016-11-28 06:37 | DIAGNOSTIC IMAGING REPORT ---
VENOUS DOPPLER RIGHT ARM UPPER EXTREMITY VENOUS DOPPLER HISTORY: Pain. Edema. right arm pain/swelling, ? DVT (please do subclavia) Right COMPARISON STUDY: None. FINDINGS: The internal jugular vein is patent. There is normal flow within the subclavian vein. There is normal flow and compressibility within the left axillary, basilic, brachial, radial, ulnar, and visualized cephalic veins. IMPRESSION: No DVT within the upper extremity. Electronically signed by: Mahesh Sebastian M.D. 11/28/2016 6:34 AM Dictated Date/Time: 11/28/2016 6:34 AM
[2016-11-28 07:04] LABS: LYME DISEASE AB IGG NEG (NEG); LYME DISEASE AB IGM NEG (NEG)
[2016-11-28] MEDS ORDERED: CEROVITE ADV FORMULA TAB PO SCH (09:00)
[2016-11-28] MEDS ORDERED: NON-FORMULARY MEDICATION (Glucosamine-Chondroitin (Osteo Bi-Flex Regular Str) 1 TAB) PO SCH (09:00)
--- NOTE | 2016-11-28 09:42 | Progress Note ---
Internal Med Progress Note Date of Service: Nov 28, 2016. Provider Documentation: SUBJECTIVE: Patient is doing better Right neck swelling, pain has improved No fever, chills, no discharge, no SOB. No erythema OBJECTIVE: Vital Signs-as noted below Exam: General-AAOX3, no distress Neck-Supple, Right neck swelling with Cervical lymphadenopathy- tender, swollen Lungs-AEBE, no wheezing, crackles Heart-S1, S2 normal, no murmurs Lab data as noted below. ASSESSMENT & PLAN: RIGHT NECK CELLULITIS : Improved Patient's symptoms started 3 days ago with pain, swelling, unclear etiology. Was seen in ER on 11/26/16 -diagnosed with cellulitis and sent home on Keflex- had 3 doses and came back due to worsening of swelling right neck. -CT scan done on 11/26/16- Subcutaneous fat stranding right neck extending to infra and supra clavicular areas, enlarged supraclavicular lymph nodes, no abscess--> supportive of cellulitis; US upper extremity- no thrombosis -Afebrile, No leucocytosis, Clinically - no erythema, swelling improved, enlarged, tender clavicular Lymph node -On Clindamycin TID FULL CODE DVT PROPHYLAXIS : SCDS/TEDS, Low risk DISPOSITION : OK to discharge home today Pt does not have any family physician established Vital Signs: Date Time Temp Pulse Resp B/P Pulse Ox O2 Delivery O2 Flow Rate FiO2 11/28/16 05:40 36.7 54 18 150/81 96 Room Air 11/28/16 04:35 59 16 133/69 98 Room Air 11/28/16 02:55 49 16 113/67 98 Room Air 11/28/16 01:17 36.6 44 16 134/85 98 Room Air Lab Results: Results Past 24 Hours Test 11/27/16 22:45 11/28/16 01:48 11/28/16 01:54 Range/Units Lyme Disease IgG Antibody NEG NEG Lyme Disease IgM Antibody NEG NEG White Blood Count 5.77 4.8-10.8 K/uL Red Blood Count 5.09 4.7-6.1 M/uL Hemoglobin 14.5 14.0-18.0 g/dL Hematocrit 41.3 42-52 % Mean Corpuscular Volume 81.1 80-100 fL Mean Corpuscular Hemoglobin 28.5 25-34 pg Mean Corpuscular Hemoglobin Concent 35.1 32-36 g/dl Platelet Count 246 130-400 K/uL Mean Platelet Volume 10.5 7.4-10.4 fL Neutrophils (%) (Auto) 61.5 % Lymphocytes (%) (Auto) 30.3 % Monocytes (%) (Auto) 5.2 % Eosinophils (%) (Auto) 2.6 % Basophils (%) (Auto) 0.2 % Neutrophils # (Auto) 3.55 1.4-6.5 K/uL Lymphocytes # (Auto) 1.75 1.2-3.4 K/uL Monocytes # (Auto) 0.30 0.11-0.59 K/uL Eosinophils # (Auto) 0.15 0-0.5 K/uL Basophils # (Auto) 0.01 0-0.2 K/uL RDW Standard Deviation 40.6 36.4-46.3 fL RDW Coefficient of Variation 13.5 11.5-14.5 % Immature Granulocyte % (Auto) 0.2 % Immature Granulocyte # (Auto) 0.01 0.00-0.02 K/uL Erythrocyte Sedimentation Rate 4 0-14 mm/hr Sodium Level 144 136-145 mmol/L Potassium Level 3.9 3.5-5.1 mmol/L Chloride Level 109 98-107 mmol/L Carbon Dioxide Level 26 21-32 mmol/L Anion Gap 9.0 3-11 mmol/L Blood Urea Nitrogen 8 7-18 mg/dl Creatinine 1.20 0.60-1.40 mg/dl Est Creatinine Clear Calc Drug Dose 121.5 ml/min Estimated GFR () 91.5 Estimated GFR (Non- 79.0 BUN/Creatinine Ratio 6.6 10-20 Random Glucose 95 70-99 mg/dl Calcium Level 8.7 8.5-10.1 mg/dl C-Reactive Protein < 0.29 0-0.29 mg/dl Bedside Lactic Acid Venous 1.05 0.90-1.70 mmol/L Microbiology Results 11/28/16 MRSA DNA Surveillance Screen, Received Pending
[2016-11-28] MEDS ORDERED: CLIN300C10 PO (09:55)
--- NOTE | 2016-11-28 09:57 | Discharge Instructions ---
Discharge Instructions Date of Service Nov 28, 2016. Admission Reason for Admission: Cellulitis, Neck Discharge Discharge Diagnosis / Problem: 1. Right neck cellulitis Discharge Goals Goal(s): Therapeutic intervention Activity Recommendations Activity Limitations: resume your previous activity . Instructions / Follow-Up Instructions / Follow-Up NEW MEDICATIONS: 1. Clindamycin 300 mg PO TID x 6 more days to complete course of 7 days of antibiotics 2. Probiotics recommended while being on medications (Over the counter) FOLLOW UP 1. Follow up with Dr Heck 12/01/16 at 12:45 PM Current Hospital Diet Patient's current hospital diet: Regular Diet Discharge Diet Recommended Diet: Regular Diet Pending Studies Studies pending at discharge: no Medical Emergencies . Who to Call and When: Medical Emergencies: If at any time you feel your situation is an emergency, please call 911 immediately. . Non-Emergent Contact Non-Emergency issues call your: Primary Care Provider . . "Provider Documentation" section prepared by Tiffanie Muniz. VTE Core Measure Inpt VTE Proph given/why not?: Patricia Hendricks, ERVIN's
--- NOTE | 2016-11-28 10:00 | Discharge Summary ---
Discharge Summary Date of Service Nov 28, 2016. Discharge Summary Admission Date: Nov 28, 2016 at 04:29 Discharge Date: Nov 28, 2016 Discharge Disposition: Home Principal Diagnosis: 1. Right neck cellulitis Secondary Diagnoses/Problems: 1. Depression 2. Bipolar disorder Procedures: IV Antibiotics CT scan neck done on 11/26/16 (last ED visit) upper extremity- right Consultations: None Pending Studies/Follow-Up: Instructions / Follow-Up Instructions / Follow-Up NEW MEDICATIONS: 1. Clindamycin 300 mg PO TID x 6 more days to complete course of 7 days of antibiotics 2. Probiotics recommended while being on medications (Over the counter) FOLLOW UP 1. Follow up with Dr Heck 12/01/16 at 12:45 PM Medication Reconciliation New Medications: Clindamycin Hcl (Clindamycin Hcl) 300 Mg Cap 300 MG PO TID for 6 Days, #18 CAP Continued Medications: Glucosamine-Chondroitin (Osteo Bi-Flex Regular Str) 1 Tab Tab 1 TAB PO DAILY Multivitamins/Minerals (Mvi With Minerals) Tab 1 TAB PO DAILY, TAB Discontinued Medications: Aspirin (Aspirin Ec) 325 Mg Tab 650 MG PO PRN for Pain Cephalexin Monohydrate (Keflex) 500 Mg Cap 500 MG PO QID for 9 Days, #36 CAP Admission Information HPI (per Admitting provider): The patient is a 31 year old male who presents to the Emergency Room with complaints of increasing right-sided neck pain and swelling is extending to his clavicular area. He was seen in ED yesterday for similar problem mentions that for the past 3 days he noticed pain and discomfort on rt neck area , not aware of any insect bite CT of neck done yesterday -was negative for abscess , extensive soft tissue swelling -suggestive of localized cellulitis pt was discharged home with PO Keflex pt reports of taking Po Abx , but felt his pain discomfort and swelling on rt side of neck was worse also noticed 2 small insect bite on rt shoulder , was very concerned for possible spider bite came to ER for evaluation in the ED pt was afebrile, normal white count , ESR, CRP was wnl RT upper ext USG was negative for DVT pt doses not have any established family physician ( saw Dr Stroud in [facility] [place] one time ) pt admitted for possible out pt failed treatment for rt neck cellulitis . Physical Exam (per Admitting): General Appearance: no apparent distress Head: normocephalic, atraumatic Eyes: sclerae normal ENT: + pertinent finding (rt sided neck minimum swelling , tenderness, no increases warmth noted, cervical lymphadenopathy ) Neck: + adenopathy present (cervical LN ) Respiratory/Chest: chest non-tender, lungs clear, normal breath sounds Cardiovascular: regular rate, rhythm Abdomen/GI: non tender, soft Extremities/Musculoskelatal: no pedal edema Neurologic/Psych: alert, normal mood/affect, oriented x 3 Skin: + pertinent finding (small round spots on rt shoulder calvicular area , no area of inflammation , induration noted ) Hospital Course RIGHT NECK CELLULITIS : Improved Patient's symptoms started 3 days ago with pain, swelling, unclear etiology. Was seen in ER on 11/26/16 -diagnosed with cellulitis and sent home on Keflex- had 3 doses and came back due to worsening of swelling right neck. -CT scan done on 11/26/16- Subcutaneous fat stranding right neck extending to infra and supra clavicular areas, enlarged supraclavicular lymph nodes, no abscess--> supportive of cellulitis; US upper extremity- no thrombosis -Afebrile, No leucocytosis, Clinically - no erythema, swelling improved, enlarged, tender clavicular Lymph node -On Clindamycin TID X 6 more days to complete course of 7 days of antibiotics. Recommended probiotics while being on antibiotics DEPRESSION/BIPOLAR DISORDER Stable, no suicidal ideations. On disability secondary to this. -Not on any medications -Used to follow up with psychiatry- stopped doing it. Doing well -Recommend outpatient psychiatry follow up FULL CODE DVT PROPHYLAXIS : SCDS/TEDS, Low risk DISPOSITION : Eager to be discharged and OK to discharge home today Pt does not have any family physician established Total time spent on discharge = 25 MINUTES This includes examination of the patient, discharge planning, medication reconciliation, and communication with other providers. Discharge Instructions Activity Recommendations Activity Limitations: resume your previous activity . Instructions / Follow-Up Instructions / Follow-Up NEW MEDICATIONS: 1. Clindamycin 300 mg PO TID x 6 more days to complete course of 7 days of antibiotics 2. Probiotics recommended while being on medications (Over the counter) FOLLOW UP 1. Follow up with Dr Heck 12/01/16 at 12:45 PM Current Hospital Diet Patient's current hospital diet: Regular Diet Discharge Diet Recommended Diet: Regular Diet Pending Studies Studies pending at discharge: no Medical Emergencies . Who to Call and When: Medical Emergencies: If at any time you feel your situation is an emergency, please call 911 immediately. . Non-Emergent Contact Non-Emergency issues call your: Primary Care Provider . . "Provider Documentation" section prepared by Tiffanie Muniz. VTE Core Measure Inpt VTE Proph given/why not?: Patricia Hendricks, SCD's
[2016-11-28 10:25] VITALS: BP 150/81; PULSE 54; TEMP 36.7; O2SAT 96
[2016-11-28] MEDS ORDERED: PNEUMOCOCCAL POLYSACCHARIDES 25 MCG/0.5 ML VIAL/SYR IM. ONE (12:00)
[2016-11-28] MEDS ORDERED: PNEUMOCOCCAL ADMINISTRATION CHARGE ONE (12:00)
[2016-11-28] MEDS ORDERED: INFLUENZA ADMINISTRATION CHARGE ONE (12:00)
[2016-11-28] MEDS ORDERED: INFLUENZA VIRUS QUAD VACCINE 0.5 ML SYR IM. ONE (12:00)
== END 2016-11-28 11:00 | disposition home or self-care (01) | DRG 603 ==
LOC: ENRESERVTM → ENRESERVDT → C.EDB 01:16 → C.MS2W 04:29
PROVIDERS: ADMIT Hospitalist; ATTEND Internal Medicine
DX: L03.221 Cellulitis of neck (principal); F31.10 Bipolar disorder, current episode manic without psychotic features, unspecified; Z83.3 Family history of diabetes mellitus; Z81.8 Family history of other mental and behavioral disorders; Z82.49 Family history of ischemic heart disease and other diseases of the circulatory system; I10 Essential (primary) hypertension; G43.909 Migraine, unspecified, not intractable, without status migrainosus; F25.9 Schizoaffective disorder, unspecified; F17.210 Nicotine dependence, cigarettes, uncomplicated; Z88.8 Allergy status to other drugs, medicaments and biological substances; Z91.018 Allergy to other foods; Z79.82 Long term (current) use of aspirin; Z79.899 Other long term (current) drug therapy; J45.909 Unspecified asthma, uncomplicated

== ENCOUNTER 2017-07-26 11:33 | Emergency (ER) | payer OTHER ==
[~2017-07-26] VITALS: Ht 182.9 cm; Wt 123.0 kg
[~2017-07-26 11:33] MED LIST changes: -ASPI325T39 PO; -CEPH500C2 PO; +CLIN300C10 PO
[2017-07-26 11:37] VITALS: Ht 182.9 cm; Wt 123.0 kg
[2017-07-26] MEDS ORDERED: KETOROLAC TROMETHAMINE 30 MG/ML VIAL IV STA (12:27)
[2017-07-26] MEDS ORDERED: ONDANSETRON INJ 2 MG/ML 2 ML VIAL IV STA (12:27)
[2017-07-26 13:26] LABS: URINE APPEARANCE CLEAR (CLEAR); URINE BILIRUBIN NEG (NEG); URINE COLOR YELLOW; URINE NITRITE NEG (NEG); URINE PH 5.5 (4.5-7.5); URINE SPECIFIC GRAVITY 1.011 (1.000-1.030); UROBILINOGEN NEG (NEG); ZZUR CULT IF INDIC CLEAN CATCH NO
[2017-07-26 13:27] LABS: MANUAL MICROSCOPIC REQUIRED? YES; REVIEW REQ? NO
[2017-07-26 13:41] LABS: URINE BACTERIA NEG (NEG); URINE RBC 0-4 /hpf (0-4); URINE WBC 0 /hpf (0-5)
[2017-07-26 13:54] LABS: BASO % 0.2 %; BASO ABS # 0.01 K/uL (0-0.2); COMPLETE YES; EOS % 0.9 %; HEMATOCRIT 44.9 % (42-52); IG% 0.2 %; LYMPH ABS # 1.37 K/uL (1.2-3.4); MEAN CELL VOLUME 83.1 fL (80-100); MEAN CORPUSCULAR HEMOGLOBIN 28.1 pg (25-34); MEAN CORPUSCULAR HGB CONC 33.9 g/dl (32-36); MEAN PLATELET VOLUME 10.7 fL (7.4-10.4); MONO % 5.7 %; PLATELET COUNT 254 K/uL (130-400); WHITE BLOOD COUNT 5.27 K/uL (4.8-10.8)
[2017-07-26 14:10] LABS: BUN/CREATININE RATIO 7.5 (10-20); CALCIUM 9.3 mg/dl (8.5-10.1); CREATININE 1.2 mg/dl (0.60-1.40); POTASSIUM 4.4 mmol/L (3.5-5.1)
--- NOTE | 2017-07-26 16:02 | DIAGNOSTIC IMAGING REPORT ---
CT SCAN OF THE ABDOMEN AND PELVIS WITH IV CONTRAST CLINICAL HISTORY: Generalized abdominal pain. COMPARISON STUDY: KUB dated 10/14/2015. TECHNIQUE: Following the IV administration of 89 cc of Optiray 320, CT scan of the abdomen and pelvis is performed from the lung bases to the proximal femora. Images are reviewed in the axial, sagittal, and coronal planes. IV contrast was administered without complication. A dose lowering technique was utilized adhering to the principles of ALARA. CT DOSE: 1030.51 mGy.cm FINDINGS: Lung bases: The heart is normal in size and without pericardial effusion. The lung bases are clear. Liver: The contrast-enhanced liver is normal in size, contour, and attenuation. There is no intrahepatic biliary ductal dilatation. The hepatic veins and portal veins are patent. Gallbladder: Contracted. Spleen: Normal in size and attenuation. Pancreas: Unremarkable. Adrenal glands: Unremarkable. Kidneys: The contrast enhanced kidneys are normal in size and without hydronephrosis. The kidneys enhance symmetrically. Abdominal vasculature: The abdominal aorta is normal in course and caliber. Bowel: There are scattered colonic diverticula without CT evidence of acute diverticulitis. No bowel obstruction is seen. There is mild colonic fecal retention. The appendix is well-visualized and normal. Peritoneum: There is no intraperitoneal free air or abdominal ascites. There is a small fat-containing umbilical hernia. Lymphadenopathy: None. Pelvic viscera: The bladder, prostate, and seminal vesicles are normal as visualized. Skeletal structures: No lytic or blastic lesions are seen. There are postoperative changes from L4 to S1 spinal fusion. IMPRESSION: There are no acute infectious or inflammatory findings in the abdomen or pelvis. Electronically signed by: Donny Houston M.D. 07/26/2017 4:01 PM Dictated Date/Time: 07/26/2017 3:56 PM
[2017-07-26 17:09] VITALS: BP 119/70; PULSE 59; TEMP 36.7; O2SAT 97
--- NOTE | 2017-07-26 19:14 | EMERGENCY ROOM VISIT NOTE ---
History Report prepared by Prateek: Amrit Kwok Under the Supervision of: Dr. Addi Crespo D.O. First contact with patient: 12:21 Chief Complaint: GI ASSESSMENT Stated Complaint: HAVING PROBLEMS WITH BOWEL MOVEMENTS Nursing Triage Summary: Pt c/o cuts on his knuckles from working at [email or web address]. Right index finger Left middle finger. Pt states he's having problems having a BM. Goes every day or every other day but it's hard and has no water in it. C/O pain in his tummy. History of Present Illness The patient is a 31 year old male who presents to the Emergency Room with complaints of constant right lower quadrant and epigastric abdominal pain for the past 3-4 weeks. He currently rates his discomfort as a 2/10 in severity. He additionally states that he is nauseous, he is fatigued, and he has been having diarrhea. Also, he has a cough, runny nose, his urine is brown, and he has testicular pain with urination. The patient states that he has never had this pain before, he has not past medical history, he does not take any medications, and he has no recent sick contacts. Pt denies headache, change in vision, fevers , chest pain, shortness of breath, vomiting, and melena. Source of History: patient Onset: 3-4 weeks ago Position: abdomen Symptom Intensity: 8/10 Associated Symptoms: + cough, + nausea, + diarrhea, + urinary symptoms, + fatigue Review of Systems See HPI for pertinent positives & negatives. A total of 10 systems reviewed and were otherwise negative. Past Medical & Surgical Medical Problems: (1) ASTHMA, UNSPECIFIED (2) BIPOL I DIS, MOST RECENT EPIS (OR CURRENT) MANIC, UNSPEC (3) Cellulitis, neck (4) FAM HX-DIABETES MELLITUS (5) FAM HX-PSYCHIATRIC COND (6) FAMILY HISTORY OF OTHER CARDIOVASCULAR DISEASES (7) HOMICIDAL IDEATION (8) HYPERTENSION NOS (9) Lumbar stenosis with neurogenic claudication (10) MIGRAINE UNSPECIFIED W/O INTRACT MGRN W/O STATUS MIGRAINOSUS (11) Schizoaffective disorder (12) SUICIDAL IDEATION (13) TOBACCO USE DISORDER Family History Diabetes mellitus Hypertension Social History Smoking Status: Former Smoker Alcohol Use: none Drug Use: none Marital Status: single Occupation Status: disabled Current/Historical Medications Scheduled Glucosamine-Chondroitin (Osteo Bi-Flex Regular Str), 1 TAB PO DAILY Multivitamins/Minerals (Mvi With Minerals), 1 TAB PO DAILY Allergies Coded Allergies: Risperidone (Verified Allergy, Severe, TONGUE SWELLS UP, 07/26/17) Beet (Verified Adverse Reaction, Unknown, VOMITS, 07/26/17) Fentanyl (Unverified Adverse Reaction, Unknown, constipation and vomiting , 07/26/17) Physical Exam Vital Signs Date Time Temp Pulse Resp B/P (MAP) Pulse Ox O2 Delivery O2 Flow Rate FiO2 07/26/17 17:09 36.7 59 18 119/70 97 Room Air 07/26/17 15:58 36.8 51 14 100/53 97 Room Air 07/26/17 13:38 36.7 58 18 118/71 98 Room Air 07/26/17 11:37 36.8 86 16 153/82 98 Room Air Physical Exam GENERAL: Standing in room, alert, well appearing, well nourished, no distress, non-toxic EYE EXAM: normal conjunctiva. OROPHARYNX: no exudate, no erythema, lips, buccal mucosa, and tongue normal and mucous membranes are moist NECK: supple, no nuchal rigidity, no adenopathy, non-tender LUNGS: Clear to auscultation. Normal chest wall mechanics HEART: no murmurs, S1 normal and S2 normal ABDOMEN: Diffuse faint abdominal tenderness in the epigastric and right lower quadrant. Abdomen soft, normo-active bowel sounds, no masses, no rebound or guarding. BACK: Back is symmetrical on inspection and there is no deformity, no midline tenderness, no CVA tenderness. SKIN: no rashes and no bruising UPPER EXTREMITIES: upper extremities are grossly normal. LOWER EXTREMITIES: No pitting edema. NEURO EXAM: Normal sensorium, cranial nerves II-XII grossly intact, normal speech, no gross weakness of arms, no gross weakness of legs. Gross sensation intact. Medical Decision & Procedures ER Provider Diagnostic Interpretation: Radiology results as stated below per my review and the radiologist's interpretation: CT SCAN OF THE ABDOMEN AND PELVIS WITH IV CONTRAST CLINICAL HISTORY: Generalized abdominal pain. COMPARISON STUDY: KUB dated 10/14/2015. TECHNIQUE: Following the IV administration of 89 cc of Optiray 320, CT scan of the abdomen and pelvis is performed from the lung bases to the proximal femora. Images are reviewed in the axial, sagittal, and coronal planes. IV contrast was administered without complication. A dose lowering technique was utilized adhering to the principles of ALARA. CT DOSE: 1030.51 mGy.cm FINDINGS: Lung bases: The heart is normal in size and without pericardial effusion. The lung bases are clear. Liver: The contrast-enhanced liver is normal in size, contour, and attenuation. There is no intrahepatic biliary ductal dilatation. The hepatic veins and portal veins are patent. Gallbladder: Contracted. Spleen: Normal in size and attenuation. Pancreas: Unremarkable. Adrenal glands: Unremarkable. Kidneys: The contrast enhanced kidneys are normal in size and without hydronephrosis. The kidneys enhance symmetrically. Abdominal vasculature: The abdominal aorta is normal in course and caliber. Bowel: There are scattered colonic diverticula without CT evidence of acute diverticulitis. No bowel obstruction is seen. There is mild colonic fecal retention. The appendix is well-visualized and normal. Peritoneum: There is no intraperitoneal free air or abdominal ascites. There is a small fat-containing umbilical hernia. Lymphadenopathy: None. Pelvic viscera: The bladder, prostate, and seminal vesicles are normal as visualized. Skeletal structures: No lytic or blastic lesions are seen. There are postoperative changes from L4 to S1 spinal fusion. IMPRESSION: There are no acute infectious or inflammatory findings in the abdomen or pelvis. Electronically signed by: Donny Houston M.D. 07/26/2017 4:01 PM Dictated Date/Time: 07/26/2017 3:56 PM Laboratory Results 07/26/17 13:09 Red Blood Count 5.40, Mean Corpuscular Volume 83.1, Mean Corpuscular Hemoglobin 28.1, Mean Corpuscular Hemoglobin Concent 33.9, Mean Platelet Volume 10.7, Neutrophils (%) (Auto) 67.0, Lymphocytes (%) (Auto) 26.0, Monocytes (%) (Auto) 5.7, Eosinophils (%) (Auto) 0.9, Basophils (%) (Auto) 0.2, Neutrophils # (Auto) 3.53, Lymphocytes # (Auto) 1.37, Monocytes # (Auto) 0.30, Eosinophils # (Auto) 0.05, Basophils # (Auto) 0.01 07/26/17 13:09 Test 07/26/17 12:45 07/26/17 13:09 Urine Color YELLOW Urine Appearance CLEAR (CLEAR) Urine pH 5.5 (4.5-7.5) Urine Specific [place] 1.011 (1.000-1.030) Urine Protein NEG (NEG) Urine Glucose (UA) NEG (NEG) Urine Ketones NEG (NEG) Urine Occult Blood NEG (NEG) Urine Nitrite NEG (NEG) Urine Bilirubin NEG (NEG) Urine Urobilinogen NEG (NEG) Urine Leukocyte Esterase NEG (NEG) Urine WBC (Auto) /hpf (0-5) Urine RBC (Auto) /hpf (0-4) Urine Hyaline Casts (Auto) /lpf (0-5) Urine Epithelial Cells (Auto) /lpf (0-5) Urine Bacteria (Auto) (NEG) Urine RBC 0-4 /hpf (0-4) Urine WBC 0 /hpf (0-5) Urine Epithelial Cells 0-5 /lpf (0-5) Urine Bacteria NEG (NEG) White Blood Count 5.27 K/uL (4.8-10.8) Red Blood Count 5.40 M/uL (4.7-6.1) Hemoglobin 15.2 g/dL (14.0-18.0) Hematocrit 44.9 % (42-52) Mean Corpuscular Volume 83.1 fL (80-100) Mean Corpuscular Hemoglobin 28.1 pg (25-34) Mean Corpuscular Hemoglobin Concent 33.9 g/dl (32-36) Platelet Count 254 K/uL (130-400) Mean Platelet Volume 10.7 fL (7.4-10.4) Neutrophils (%) (Auto) 67.0 % Lymphocytes (%) (Auto) 26.0 % Monocytes (%) (Auto) 5.7 % Eosinophils (%) (Auto) 0.9 % Basophils (%) (Auto) 0.2 % Neutrophils # (Auto) 3.53 K/uL (1.4-6.5) Lymphocytes # (Auto) 1.37 K/uL (1.2-3.4) Monocytes # (Auto) 0.30 K/uL (0.11-0.59) Eosinophils # (Auto) 0.05 K/uL (0-0.5) Basophils # (Auto) 0.01 K/uL (0-0.2) RDW Standard Deviation 40.2 fL (36.4-46.3) RDW Coefficient of Variation 13.4 % (11.5-14.5) Immature Granulocyte % (Auto) 0.2 % Immature Granulocyte # (Auto) 0.01 K/uL (0.00-0.02) Anion Gap 9.0 mmol/L (3-11) Est Creatinine Clear Calc Drug Dose 118.6 ml/min Estimated GFR () 91.5 Estimated GFR (Non- 79.0 BUN/Creatinine Ratio 7.5 (10-20) Calcium Level 9.3 mg/dl (8.5-10.1) Total Bilirubin 0.6 mg/dl (0.2-1) Direct Bilirubin 0.2 mg/dl (0-0.2) Aspartate Amino Transf (AST/SGOT) 11 U/L (15-37) Alanine Aminotransferase (ALT/SGPT) 26 U/L (12-78) Alkaline Phosphatase 58 U/L (45-117) Total Protein 8.0 gm/dl (6.4-8.2) Albumin 4.1 gm/dl (3.4-5.0) Lipase 122 U/L (73-393) Laboratory results per my review. Medications Administered Medications (Trade) Dose Ordered Sig/Thalia Route Start Time Stop Time Status Last Admin Dose Admin Ondansetron HCl (Zofran Inj) 4 mg NOW STAT IV 07/26/17 12:27 07/26/17 12:29 DC 07/26/17 13:05 4 MG Ketorolac Tromethamine (Toradol Inj) 30 mg NOW STAT IV 07/26/17 12:27 07/26/17 12:29 DC 07/26/17 13:05 30 MG ED Course ED COURSE: Vital signs were reviewed and showed situational hypertension The patients medical record was reviewed The above diagnostic studies were performed and reviewed. ED treatments and interventions as stated above. 1221: The patient was evaluated in room C2. A complete history and physical examination was performed. 1227: Toradol 30mg IV, Zofran 4mg IV 1452: I reevaluated the patient, and he is doing well. 1557: I reassessed the patient, and he is still doing well. 1649: Upon reevaluation, the patient is doing well.I discussed my findings with the patient and he understands and agrees with the treatment plan. Based on the patients age, coexisting illnesses, exam and lab findings the decision to treat as an outpatient was made. The patient remained stable while under my care. The patient appeared well at the time of discharge. Medical Decision Differential diagnoses includes but is not limited to gastritis, peptic ulcer disease, GERD, gallbladder disease, pancreatitis, small bowel obstruction, acute coronary syndrome, pericarditis, ischemic bowel, irritable bowel disease, irritable bowel syndrome, appendicitis, diverticulitis, malignancy, hernia, urinary tract infection, torsion, perforation, trauma, infectious. Patient is a 31-year-old male who presents to ER for diffuse abdominal pain which is been present for the past 3 weeks gradually worsening. Pain is in the epigastric and right lower quadrant. Admits to nausea and diarrhea. No vomiting. No previous abdominal surgeries. CBC all BMP, LFTs, bilirubin lipase is unremarkable. UA was negative. CT was completely benign. Patient was given IV Zofran and Toradol. He felt significant better. He is discharged follow-up with PCP. Discussed with Pt concerning signs and symptoms to watch out for. Pt was instructed to follow up with their PCP and discussed with the patient their option to return to the ED at anytime for persistent or worsening symptoms. The appropriate anticipatory guidance and out-patient management, including indications for return to the emergency department, were explained at length to the patient and understood. Medication Reconcilliation Current Medication List: was personally reviewed by me Blood Pressure Screening Patient's blood pressure: Elevated blood pressure Blood pressure disposition: Elevated BP felt to be situational Impression Primary Impression: Abdominal pain Scribe Attestation The scribe's documentation has been prepared under my direction and personally reviewed by me in its entirety. I confirm that the note above accurately reflects all work, treatment, procedures, and medical decision making performed by me. Departure Information Dispostion Home / Self-Care Referrals No Doctor, Assigned (PCP) Forms HOME CARE DOCUMENTATION FORM, IMPORTANT VISIT INFORMATION Patient Instructions Abdominal Pain - [facility], [facility] Additional Instructions Please follow up with your primary care doctor with in the next 24 hours. Any worsening of your symptoms, please return to the ED immediately. This includes any fevers greater than 100.4, worsening pain, chest pain, shortness breath, persistent nausea, vomiting, unable to eat or drink, or any other concerning signs or symptoms from your standpoint. Problem Qualifiers Primary Impression: Abdominal pain Abdominal location: unspecified location Qualified Codes: R10.9 - Unspecified abdominal pain
== END 2017-07-26 17:19 | disposition home or self-care (01) ==
LOC: C.EDB 11:36 → C.EDC 17:19
DX: R10.31 Right lower quadrant pain (principal); R10.13 Epigastric pain; J45.909 Unspecified asthma, uncomplicated; I10 Essential (primary) hypertension; Z87.891 Personal history of nicotine dependence; Z83.3 Family history of diabetes mellitus; Z82.49 Family history of ischemic heart disease and other diseases of the circulatory system; Z81.8 Family history of other mental and behavioral disorders

== ENCOUNTER 2017-08-04 08:09 | Emergency (ER) | payer OTHER ==
[~2017-08-04] VITALS: Ht 182.9 cm; Wt 121.0 kg
[~2017-08-04 08:09] MED LIST changes: -CLIN300C10 PO
[2017-08-04 08:12] VITALS: TEMP 36.6; Ht 182.9 cm; Wt 121.0 kg
[2017-08-04] MEDS ORDERED: DiphenhydrAMINE HCL 50 MG/ML VIAL IV STA (09:00)
[2017-08-04 09:28] LABS: BASO % 0.2 %; BASO ABS # 0.01 K/uL (0-0.2); COMPLETE YES; EOS % 3.8 %; HEMATOCRIT 42.5 % (42-52); IG% 0.2 %; LYMPH % 33.3 %; LYMPH ABS # 1.75 K/uL (1.2-3.4); MEAN CELL VOLUME 81.4 fL (80-100); MEAN CORPUSCULAR HEMOGLOBIN 28.7 pg (25-34); MEAN CORPUSCULAR HGB CONC 35.3 g/dl (32-36); MEAN PLATELET VOLUME 10.3 fL (7.4-10.4); MONO % 8.4 %; NEUT % 54.1 %; PLATELET COUNT 273 K/uL (130-400); RED BLOOD COUNT 5.22 M/uL (4.7-6.1); WHITE BLOOD COUNT 5.25 K/uL (4.8-10.8)
[2017-08-04 09:53] LABS: BUN/CREATININE RATIO 6.1 (10-20); CALCIUM 8.7 mg/dl (8.5-10.1); CREATININE 0.98 mg/dl (0.60-1.40)
--- NOTE | 2017-08-04 10:18 | DIAGNOSTIC IMAGING REPORT ---
GALLBLADDER-ABD LIMITED CLINICAL HISTORY: 32 years-old Male presenting with right upper quadrant pain. TECHNIQUE: Real-time grayscale and limited color Doppler ultrasound imaging of the abdomen limited to the right upper quadrant was performed. COMPARISON: CT from 07/26/2017. FINDINGS: Pancreas: Visualized portions of the pancreatic head and body normal. Liver: Mildly hyperechogenic parenchyma, although the right hemidiaphragm remains visible, likely indicating mild steatosis. The liver measures 16.2 cm in maximal sagittal dimension. No sonographic evidence of hepatic mass. Main portal vein patent with normal directional flow. Biliary: No intrahepatic biliary ductal dilatation. Common bile duct measures up to 5 mm in diameter. Gallbladder: No evidence of gallstones, gallbladder wall thickening, gallbladder distention, or pericholecystic fluid or inflammatory change. Right kidney: Normal in appearance. No hydronephrosis. Ascites: None. IMPRESSION: 1. Suggestion of mild hepatic steatosis. Correlate with liver enzymes to exclude steatohepatitis as a cause for abdominal pain. 2. No cholelithiasis or biliary ductal dilatation. Electronically signed by: Krishna Pavon M.D. 08/04/2017 10:17 AM Dictated Date/Time: 08/04/2017 10:11 AM
--- NOTE | 2017-08-04 10:36 | EMERGENCY ROOM VISIT NOTE ---
History First contact with patient: 08:19 Chief Complaint: OTHER COMPLAINT Stated Complaint: NUMB FACE, HANDS, FEET History of Present Illness The patient is a 32 year old male who presents to the Emergency Room with complaints of multiple vague complaints. The patient states that he has had some tingling and itchiness in his face throat arms and legs for the last 3-4 weeks. He also states that he has had some intermittent abdominal pain. He was seen here on July 26 for the abdominal pain and stated that they did not find anything. The patient denies any chest pain or shortness of breath. The patient does admit to getting cold sweats and chills intermittently. The patient denies any nausea or vomiting. He denies any reflux. The patient states that he was having problems with constipation and is now taking juice to help. The patient also states that he has a history of bipolar disorder and was on medications most recently he was seen at [facility] proximally 2 months ago and was placed on medication which he took for a month and then did not get the prescription refilled because he wants to apply for [place] [employer]. 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 The patient also states that he has tightness in his back but states that is due to his prior surgery and whether turning cold since this has happened in the past. Review of Systems 10 system review was performed and was negative unless stated otherwise history of present illness. Past Medical/Surgical History Medical Problems: (1) ASTHMA, UNSPECIFIED (2) BIPOL I DIS, MOST RECENT EPIS (OR CURRENT) MANIC, UNSPEC (3) Cellulitis, neck (4) FAM HX-DIABETES MELLITUS (5) FAM HX-PSYCHIATRIC COND (6) FAMILY HISTORY OF OTHER CARDIOVASCULAR DISEASES (7) HOMICIDAL IDEATION (8) HYPERTENSION NOS (9) Lumbar stenosis with neurogenic claudication (10) MIGRAINE UNSPECIFIED W/O INTRACT MGRN W/O STATUS MIGRAINOSUS (11) Schizoaffective disorder (12) SUICIDAL IDEATION (13) TOBACCO USE DISORDER Family History Diabetes mellitus Hypertension Social History Smoking Status: Former Smoker Alcohol Use: none Drug Use: none Marital Status: single Occupation Status: disabled Current/Historical Medications No Active Prescriptions or Reported Meds Physical Exam Vital Signs Date Time Temp Pulse Resp B/P (MAP) Pulse Ox O2 Delivery O2 Flow Rate FiO2 08/04/17 09:48 62 18 125/69 98 Room Air 08/04/17 08:12 36.6 59 18 130/78 95 Room Air Physical Exam GENERAL: 32-year-old male appears in no acute distress. MENTAL STATUS: Alert and oriented 3. The patient's affect is flat. He is nontender full. He answers questions appropriately. He does not appear anxious. EYES: PERRLA. EOMs intact. EARS: Canals clear. TMs without fluid level noted. NOSE: Nasal mucosa with erythema and engorgement. PHARYNX: Cobblestoning noted. No erythema or edema noted. NECK: Supple, no lymphadenopathy noted. No carotid bruits noted. LUNGS: Clear auscultation without wheezes rales or rhonchi. CARDIAC: Regular rate and rhythm without murmur. Pulses is full and equal throughout. ABDOMEN: Positive bowel sounds all 4 quadrants. Soft, generalized tenderness to palpation throughout with increased tenderness over the right upper quadrant. No organomegaly or masses noted. NEURO:Cranial nerves two through 12 intact. Cerebellar function intact with [id number]. Fine motor intact with alternating finger motions. LOWER EXTREMITIES: No cyanosis or edema noted. Sensation is intact to bilateral feet with sharp and dull. Medical Decision & Procedures ER Provider Diagnostic Interpretation: GALLBLADDER-ABD LIMITED CLINICAL HISTORY: 32 years-old Male presenting with right upper quadrant pain. TECHNIQUE: Real-time grayscale and limited color Doppler ultrasound imaging of the abdomen limited to the right upper quadrant was performed. COMPARISON: CT from 07/26/2017. FINDINGS: Pancreas: Visualized portions of the pancreatic head and body normal. Liver: Mildly hyperechogenic parenchyma, although the right hemidiaphragm remains visible, likely indicating mild steatosis. The liver measures 16.2 cm in maximal sagittal dimension. No sonographic evidence of hepatic mass. Main portal vein patent with normal directional flow. Biliary: No intrahepatic biliary ductal dilatation. Common bile duct measures up to 5 mm in diameter. Gallbladder: No evidence of gallstones, gallbladder wall thickening, gallbladder distention, or pericholecystic fluid or inflammatory change. Right kidney: Normal in appearance. No hydronephrosis. Ascites: None. IMPRESSION: 1. Suggestion of mild hepatic steatosis. Correlate with liver enzymes to exclude steatohepatitis as a cause for abdominal pain. 2. No cholelithiasis or biliary ductal dilatation. Electronically signed by: Krishna Pavon M.D. 08/04/2017 10:17 AM Dictated Date/Time: 08/04/2017 10:11 AM Laboratory Results 08/04/17 09:15 Red Blood Count 5.22, Mean Corpuscular Volume 81.4, Mean Corpuscular Hemoglobin 28.7, Mean Corpuscular Hemoglobin Concent 35.3, Mean Platelet Volume 10.3, Neutrophils (%) (Auto) 54.1, Lymphocytes (%) (Auto) 33.3, Monocytes (%) (Auto) 8.4, Eosinophils (%) (Auto) 3.8, Basophils (%) (Auto) 0.2, Neutrophils # (Auto) 2.84, Lymphocytes # (Auto) 1.75, Monocytes # (Auto) 0.44, Eosinophils # (Auto) 0.20, Basophils # (Auto) 0.01 08/04/17 09:15 Test 08/04/17 09:15 White Blood Count 5.25 K/uL (4.8-10.8) Red Blood Count 5.22 M/uL (4.7-6.1) Hemoglobin 15.0 g/dL (14.0-18.0) Hematocrit 42.5 % (42-52) Mean Corpuscular Volume 81.4 fL (80-100) Mean Corpuscular Hemoglobin 28.7 pg (25-34) Mean Corpuscular Hemoglobin Concent 35.3 g/dl (32-36) Platelet Count 273 K/uL (130-400) Mean Platelet Volume 10.3 fL (7.4-10.4) Neutrophils (%) (Auto) 54.1 % Lymphocytes (%) (Auto) 33.3 % Monocytes (%) (Auto) 8.4 % Eosinophils (%) (Auto) 3.8 % Basophils (%) (Auto) 0.2 % Neutrophils # (Auto) 2.84 K/uL (1.4-6.5) Lymphocytes # (Auto) 1.75 K/uL (1.2-3.4) Monocytes # (Auto) 0.44 K/uL (0.11-0.59) Eosinophils # (Auto) 0.20 K/uL (0-0.5) Basophils # (Auto) 0.01 K/uL (0-0.2) RDW Standard Deviation 39.8 fL (36.4-46.3) RDW Coefficient of Variation 13.3 % (11.5-14.5) Immature Granulocyte % (Auto) 0.2 % Immature Granulocyte # (Auto) 0.01 K/uL (0.00-0.02) Anion Gap 4.0 mmol/L (3-11) Est Creatinine Clear Calc Drug Dose 142.7 ml/min Estimated GFR () 116.1 Estimated GFR (Non- 100.2 BUN/Creatinine Ratio 6.1 (10-20) Calcium Level 8.7 mg/dl (8.5-10.1) Total Bilirubin 0.6 mg/dl (0.2-1) Direct Bilirubin 0.1 mg/dl (0-0.2) Aspartate Amino Transf (AST/SGOT) 12 U/L (15-37) Alanine Aminotransferase (ALT/SGPT) 30 U/L (12-78) Alkaline Phosphatase 56 U/L (45-117) Total Protein 7.7 gm/dl (6.4-8.2) Albumin 4.0 gm/dl (3.4-5.0) Lipase 103 U/L (73-393) Medications Administered Medications (Trade) Dose Ordered Sig/Thalia Route Start Time Stop Time Status Last Admin Dose Admin Diphenhydramine HCl (Benadryl Inj) 25 mg NOW STAT IV 08/04/17 09:00 08/04/17 09:01 DC 08/04/17 09:17 25 MG ED Course The patient was evaluated. The patient's EMR medication list were reviewed. The patient had a full comprehensive workup on July 26 for his abdominal pain. Labs are unremarkable. CT of the abdomen and pelvis did not reveal any abnormalities. IV access was obtained. CBC and differential, renal profile, LFTs and lipase levels were ordered. The patient was given Benadryl 25 mg IV. Gallbladder ultrasound was ordered and interpreted by the radiologist as above without any acute findings. Labs are reviewed and were unremarkable. The patient was informed of the findings. He did state that the Benadryl, rate of his tingling sensation and it's for "a while and then it came back. The patient was independently evaluated by Dr. Faria who agree with treatment plan. The patient was discharged home in stable condition. Medical Decision Differential diagnosis include pancreatitis, acute cholecystitis, cholelithiasis Differential diagnosis include panic attack, drug withdrawal symptoms, allergies [place] Drug Monitoring Program Search Results: patient reviewed within database Medication Reconcilliation Current Medication List: was personally reviewed by me Blood Pressure Screening Patient's blood pressure: Normal blood pressure Impression Primary Impression: Abdominal pain Additional Impressions: Allergic rhinitis Bipolar disorder Departure Information Dispostion Home / Self-Care Condition GOOD Prescriptions No Active Prescriptions or Reported Meds Referrals No Doctor, Assigned (PCP) Forms HOME CARE DOCUMENTATION FORM, IMPORTANT VISIT INFORMATION, WORK / SCHOOL INSTRUCTIONS Patient Instructions Abdominal Pain - [facility], [facility] Additional Instructions Recommend [id number] antihistamine such as Claritin or Zyrtec daily. Follow-up with your family doctor for cholesterol check due to year fatty liver. Symptoms may be due to coming off your psychiatric medications. If symptoms persist may want reevaluation by psychiatry. Problem Qualifiers Primary Impression: Abdominal pain Abdominal location: right upper quadrant Qualified Codes: R10.11 - Right upper quadrant pain Additional Impressions: Allergic rhinitis Chronicity: acute Allergic rhinitis trigger: unspecified Allergic rhinitis seasonality: unspecified seasonality Qualified Codes: J30.9 - Allergic rhinitis, unspecified Bipolar disorder Active/Remission status: remission status unspecified Qualified Codes: F31.9 - Bipolar disorder, unspecified
--- NOTE | 2017-08-04 10:43 | EMERGENCY ROOM VISIT NOTE ---
ED Visit Note First contact with patient: 08:19 I have personally seen and evaluated the patient with the PA. I agree with the diagnosis and management decisions and have been personally involved in the case. Please see Aster vallejo PA-C's notes for further details of the history, physical and visit.
[2017-08-04 10:44] VITALS: BP 115/71; PULSE 57; O2SAT 97
== END 2017-08-04 10:45 | disposition home or self-care (01) ==
LOC: C.EDB 08:11
DX: J30.9 Allergic rhinitis, unspecified (principal); R10.9 Unspecified abdominal pain; F31.9 Bipolar disorder, unspecified; I10 Essential (primary) hypertension; J45.909 Unspecified asthma, uncomplicated; F20.9 Schizophrenia, unspecified; M48.062 Spinal stenosis, lumbar region with neurogenic claudication; Z86.19 Personal history of other infectious and parasitic diseases; Z87.891 Personal history of nicotine dependence; Z83.3 Family history of diabetes mellitus; Z81.8 Family history of other mental and behavioral disorders; Z82.49 Family history of ischemic heart disease and other diseases of the circulatory system

== ENCOUNTER 2017-09-22 09:08 | Day surgery (SDC) | payer OTHER ==
[2017-09-11 15:06] VITALS: BMI 38.0
[~2017-09-22] VITALS: Ht 182.9 cm; Wt 127.3 kg
[~2017-09-22 09:08] MED LIST changes: +ASPI325T39 PO; +BNT20 PO; +CEFAZOLIN 3000MG IV PUSH 15 ML IV SCH; -GLUCTAB18 PO; +LACTATED RINGER'S 1000ML 1,000 ML IV SCH; -MULT-513 PO
[2017-09-22 09:40] VITALS: BP 131/72; PULSE 67; TEMP 36.6; O2SAT 98; Ht 182.9 cm; Wt 127.3 kg
[2017-09-22] MEDS ORDERED: PROPOFOL IV EMULSION 10 MG/ML 20 ML VIAL IV ONE (10:09)
[2017-09-22] MEDS ORDERED: FENTANYL CITRATE INJ 50 MCG/1 ML 2 ML VIAL ONE (10:09)
[2017-09-22] MEDS ORDERED: MIDAZOLAM HCL 1 MG/ML 2ML VIAL ONE ×2 (10:09→11:15)
--- NOTE | 2017-09-22 10:38 | History & Physical Bridge Note ---
H&P Re-Evaluation Bridge Note: I have examined the patient, reviewed the History & Physical and in the interval since the performance of the History & Physical I have noted the following changes of clinical significance: No changes noted
[2017-09-22] MEDS ORDERED: BACITRACIN OINT 15 GM TUBE ONE (10:58)
[2017-09-22] MEDS ORDERED: LIDOCAINE HCL 1% 20 ML VIAL ONE (10:58)
[2017-09-22] MEDS ORDERED: BUPIVACAINE 0.5 % 5 MG/1 ML MPF 30ML VIAL ONE (10:58)
--- NOTE | 2017-09-22 11:46 | [facility] Post Operative Brief Note ---
Immediate Operative Summary Operative Date Sep 22, 2017. Pre-Operative Diagnosis Enlarged Right Groin Lymph Node Post-Operative Diagnosis Enlarged Right Groin Lymph Node Procedure(s) Performed Biopsy Right Groin Lymph Node Surgeon Dr. 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
[2017-09-22] MEDS ORDERED: SODIUM CHLORIDE 0.9% 1000ML 1,000 ML IV SCH (11:51)
[2017-09-22] MEDS ORDERED: OXYC-57 PO (11:54)
--- NOTE | 2017-09-22 11:57 | Discharge Instructions ---
Discharge Instructions Date of Service Sep 22, 2017. Visit Reason for Visit: Lymphadenopathy, Inguinal Discharge Discharge Diagnosis / Problem: S/P biopsy right groin lymph node Discharge Goals Goal(s): Decrease discomfort, Improve function Activity Recommendations Activity Limitations: per Instructions/Follow-up section Lifting Limitations: none Exercise/Sports Limitations: rest today May Resume Sexual Activity: when tolerated Shower/Bathe: may shower/bathe in 3 days Driving or Machine Use: resume 3 days after discharge Anesthesia . Post Anesthesia Instructions: If you have had General Anesthesia or IV Sedation: * Do not drive today. * Resume driving when surgeon permits. * Do not make important decisions or sign legal documents today. * Call surgeon for: 1. Temperature elevations greater than 101 degrees F. 2. Uncontrollable pain. 3. Excessive bleeding. 4. Persistent nausea and vomiting. 5. Medication intolerance (nausea, vomiting or rash). * For nausea and vomiting use only clear liquids such as: tea, soda, bouillon until nausea subsides, then gradually increase diet as tolerated. * If you have any concerns or questions, call your surgeon's office. If physician is unavailable and it is an emergency, call 911 or go to the nearest emergency room. . Instructions / Follow-Up Instructions / Follow-Up keep the dressing on for 4 days, he can take a shower on 09/26/2017, no driving while taking pain medicine, follow up Dr. Toledo 1 week, Diet Recommendations Recommended Home Diet: resume previous diet Procedures Procedures Performed: Biopsy Right Groin Lymph Node Pending Studies Studies pending at discharge: no Medical Emergencies . Who to Call and When: Medical Emergencies: If at any time you feel your situation is an emergency, please call 911 immediately. . Non-Emergent Contact Non-Emergency issues call your: Surgeon Call Non-Emergent contact if: you have a fever, temperature is above 100.5, your pain is not controlled, your pain is worsening, wound has increased drainage, wound has increased redness . . "Provider Documentation" section prepared by Eduardo Toledo. . [place] Drug Monitoring Program Search Results: no issues identified
[2017-09-22] MEDS ORDERED: ONDANSETRON INJ 2 MG/ML 2 ML VIAL IV PRN (12:00)
[2017-09-22] MEDS ORDERED: MoRPHine SULFATE 2 MG/ML CARP IV PRN (12:00)
[2017-09-22] MEDS ORDERED: OXYCODONE/ACETAMINOPHEN 5-325 TAB PO PRN (12:00)
[2017-09-22] MEDS ORDERED: IBUPROFEN 600 MG TAB PO PRN (12:00)
--- NOTE | 2017-09-22 12:06 | Anesthesiology Progress Note ---
Anesthesia Post Op Note Date & Time Sep 22, 2017 at 12:06 Vital Signs Pain Intensity: 0 Vital Signs Past 12 Hours Date Time Temp Pulse Resp B/P (MAP) Pulse Ox O2 Delivery O2 Flow Rate FiO2 09/22/17 12:00 56 12 117/64 97 Room Air 09/22/17 11:50 36.0 69 16 111/69 99 Oxymask 4 09/22/17 09:40 36.6 67 18 131/72 (91) 98 Room Air Notes Mental Status: alert / awake / arousable, participated in evaluation Pt Amnestic to Procedure: Yes Nausea / Vomiting: adequately controlled Pain: adequately controlled Airway Patency, RR, SpO2: stable & adequate BP & HR: stable & adequate Hydration State: stable & adequate Anesthetic Complications: no major complications apparent
[2017-09-22 12:15] VITALS: BP 118/57; PULSE 47; TEMP 36.4; O2SAT 98
[2017-09-22] MEDS ORDERED: ATROPINE SULFATE 0.1 MG/ML 5ML SYR IV PRN (12:15)
[2017-09-22] MEDS ORDERED: EpHEDrine SULFATE INJ 50 MG/ML AMP IV PRN (12:15)
[2017-09-22] MEDS ORDERED: OXYCODONE/ACETAMINOPHEN 5-325 TAB ONE (12:24)
[2017-09-22 12:45] VITALS: BP 125/60; PULSE 50; O2SAT 99
[2017-09-22 13:15] VITALS: BP 145/56; PULSE 55; O2SAT 98
--- NOTE | 2017-09-22 16:11 | OPERATIVE REPORT ---
DATE OF OPERATION: 09/22/2017 PREOPERATIVE DIAGNOSIS: Enlarged right groin lymph node. POSTOPERATIVE DIAGNOSIS: Same. PROCEDURE: Biopsy, right groin lymph node. SURGEON: Dr. Eduardo Toledo. ANESTHESIA: Conscious sedation plus local. ESTIMATED BLOOD LOSS: About 5 mL. FINDINGS: Enlarged right groin lymph node. COMPLICATIONS: None. INDICATIONS FOR THE PROCEDURE: This is a 32-year-old gentleman who presented with enlarged right groin lymph node. The patient will be required to do biopsy of the right groin lymph node. I did talk to the patient about the benefit and risk, alternate to procedure. I indicated the risks may include but not limited such as bleeding, infection, seroma, healing wound. The patient understands and he signed informed consent. I answered all questions. DETAILS OF PROCEDURE: We brought in the patient to the OR, put the patient in the supine position. The patient received SCD on bilateral legs to prevent DVT. Also, the patient received 2 grams Ancef IV for prophylactic antibiotic. The patient received conscious sedation by the anesthesiology. The right groin area was prepped and draped in routine sterile fashion. After a timeout, I injected local anesthesia by using 1% lidocaine mixed with 0.5% Marcaine on the right groin area. Then I made about a 2 cm incision and dissection through subcutaneous layer. The patient had 1 large lymph node size about 1 x 1 cm. I completely removed the lymph node with suture ties blood circulation. Hemostasis obtained. Then using 2-0 Vicryl, closed subcutaneous layer, interrupted and closed skin by using 4-0 Vicryl. We put the dressing on. The patient tolerated the procedure well. All the instrument, needle and sponge count correct x2 at the end of the case. The specimen sent to pathology. The patient transferred to recovery room in stable condition. After the procedure, I did talk to the patient about the OR finding and procedure we did. Also, gave the patient the postop care instructions and the patient understands. I attest to the content of the Intraoperative Record and any orders documented therein. Any exceptions are noted below. TL
[2017-09-23] MEDS ORDERED: CEFAZOLIN SOD 2000MG/15 ML IV PUSH IV ONE (06:00)
== END 2017-09-22 13:22 | disposition home or self-care (01) ==
LOC: C.ACU 09:08
PROVIDERS: ATTEND Surgery
DX: R59.1 Generalized enlarged lymph nodes (principal); F32.9 Major depressive disorder, single episode, unspecified; Z82.49 Family history of ischemic heart disease and other diseases of the circulatory system; Z83.3 Family history of diabetes mellitus; Z87.891 Personal history of nicotine dependence

== ENCOUNTER 2017-10-27 09:35 | Emergency (ER) | payer OTHER ==
[~2017-10-27] VITALS: Ht 182.9 cm; Wt 127.3 kg
[~2017-10-27 09:35] MED LIST changes: -CEFAZOLIN 3000MG IV PUSH 15 ML IV SCH; -LACTATED RINGER'S 1000ML 1,000 ML IV SCH
[2017-10-27 09:51] VITALS: TEMP 36.6; Ht 182.9 cm; Wt 127.3 kg
--- NOTE | 2017-10-27 11:03 | EMERGENCY ROOM VISIT NOTE ---
History Report prepared by Prateek: Kaylyn Posey Under the Supervision of: Dr. Zabrina Faria M.D. First contact with patient: 09:55 Chief Complaint: DIZZY Stated Complaint: DIZZINESS. TIGHTNESS IN HANDS AND FEET Nursing Triage Summary: pt reports bilat arms swollen for 4 hours pts better now, feels dizzy and " feels like sweating grease". dizzy all the time not just with movement feels nauseated History of Present Illness The patient is a 32 year old male who presents to the Emergency Room with complaints of constant dizziness for the past couple of days. He feels like he is going to pass out but has not actually lost consciousness. He has not eaten anything in two days because he states that he just was not hungry yesterday. He has been drinking 30 cups of water per day but states that he still feels dehydrated. He has been urinating but states that occasionally he stops mid- stream and is unsure why. He denies any dysuria. He does report some right- sided pain for the past 4 months that he rates as a 10/10 in severity. This pain has been constant for 4 months. The patient states that his hands have been swelling intermittently for the past two months. He states that this happens for a couple of hours a day and then they start to feel cold they shrink. He states that his hands were swollen bilaterally today but "shrunk" back to normal 5 minutes before he arrived in the ED. He reports that he has been having "cold blood" for the past two months where the blood in his veins feels ice cold and then his whole body gets cold. He states, "When I go to sleep all the blood feels like it's going out of my hands and I have to rub them to get the blood to go back in." The patient was taking medications for diverticulitis that he stopped taking 3 days ago because he thought that the medications were making him dizzy. He reports feeling short of breath when he "tries to call the prayer." He has been exercising lately and states that he does not feel short of breath when he is running or exercising. He also notes some nausea. The patient denies chest pain, vomiting, diarrhea, melena, hematochezia. The patient was taking medications for bipolar disorder and schizophrenia. 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 Review of Systems See HPI for pertinent positives & negatives. A total of 10 systems reviewed and were otherwise negative. Past Medical & Surgical Medical Problems: (1) ASTHMA, UNSPECIFIED (2) BIPOL I DIS, MOST RECENT EPIS (OR CURRENT) MANIC, UNSPEC (3) Cellulitis, neck (4) FAM HX-DIABETES MELLITUS (5) FAM HX-PSYCHIATRIC COND (6) FAMILY HISTORY OF OTHER CARDIOVASCULAR DISEASES (7) HOMICIDAL IDEATION (8) HYPERTENSION NOS (9) Lumbar stenosis with neurogenic claudication (10) MIGRAINE UNSPECIFIED W/O INTRACT MGRN W/O STATUS MIGRAINOSUS (11) Schizoaffective disorder (12) SUICIDAL IDEATION (13) TOBACCO USE DISORDER Family History Diabetes mellitus Hypertension Social History Smoking Status: Former Smoker Alcohol Use: none Drug Use: none Marital Status: single Occupation Status: disabled Current/Historical Medications No Active Prescriptions or Reported Meds Allergies Coded Allergies: Risperidone (Verified Allergy, Severe, TONGUE SWELLS UP, 10/27/17) Beet (Verified Adverse Reaction, Unknown, VOMITS, 10/27/17) Fentanyl (Verified Adverse Reaction, Unknown, constipation and vomiting, ) Physical Exam Vital Signs Date Time Temp Pulse Resp B/P (MAP) Pulse Ox O2 Delivery O2 Flow Rate FiO2 10/27/17 13:41 42 16 145/78 97 10/27/17 13:19 42 16 145/78 97 Room Air 10/27/17 11:44 49 17 134/83 97 Room Air 10/27/17 09:51 36.6 62 18 163/95 98 Room Air Physical Exam Vital signs reviewed. General: Well-appearing 32 year old male, in no significant distress. HEENT: No scleral icterus, PERRLA, neck supple. Atraumatic. Cardiovascular: Regular rate and rhythm, no extra sounds. Pulmonary: Clear to auscultation bilaterally, normal work of breathing. Abdomen: Soft, nontender, nondistended, positive bowel sounds. Musculoskeletal: Atraumatic, no peripheral edema. Neurologic: Patient awake alert and oriented x 3, full strength in all 4 extremities. Cranial nerves 2 through 12 grossly intact. Skin: Warm, dry, no rash Medical Decision & Procedures ER Provider Diagnostic Interpretation: Radiology results as stated below per my review and radiologist interpretation: ABDOMEN 2VIEW W/PA CHEST RTN HISTORY: 32 years-old Male abd pain, periodic upper extremity swelling acute generalized abdominal pain COMPARISON: [facility] 10/14/2015, CT abdomen and pelvis 07/26/2017 TECHNIQUE: PA view of the chest with erect and supine views of the abdomen FINDINGS: Cardiomediastinal and hilar silhouettes are within normal limits. There is no pneumothorax, pleural effusion, focal airspace consolidation or overt pulmonary edema. The bones of the chest appear grossly intact. No pneumoperitoneum or pneumatosis identified. The bowel gas pattern is nonobstructive. There are several scattered air-fluid levels noted throughout the abdomen, likely within loops of small bowel. No organomegaly or urolith. Prior laminectomy with posterior interbody shari and screw fusion and discectomy at L4-L5 and L5-S1. IMPRESSION: 1. No acute process of the chest. 2. Nonobstructive bowel gas pattern without pneumoperitoneum. 3. Multiple small bowel air-fluid levels throughout the mid abdomen suggest enteritis or ileus. The above report was generated using voice recognition software. It may contain grammatical, syntax or spelling errors. Electronically signed by: Alberto Castillo M.D. 10/27/2017 11:36 AM Dictated Date/Time: 10/27/2017 11:[address] SCAN OF THE BRAIN WITHOUT IV CONTRAST CLINICAL HISTORY: Dizziness. Left eye twitching and drooping. COMPARISON STUDY: No priors. TECHNIQUE: Unenhanced axial CT scan of the brain is performed from the vertex to the skull base. A dose lowering technique was utilized adhering to the principles of ALARA. CT DOSE: 537.48 mGy.cm FINDINGS: Brain parenchyma: The brain parenchyma is normal in appearance. There is no hemorrhage, mass effect, or evidence of acute territorial ischemia by CT criteria. Lucas-white matter is preserved. No extra-axial fluid collection is seen. Ventricles, sulci, cisterns: Normal in configuration. Intracranial vasculature: The visualized intracranial vasculature at the skull base is normal in appearance. Calvarium: Unremarkable. Sinuses and mastoids: The visualized paranasal sinuses are clear. The mastoid air cells are well pneumatized. Orbits: The bony orbits are grossly intact. IMPRESSION: No acute intracranial abnormality. Electronically signed by: Donny Houston M.D. 10/27/2017 12:43 PM Dictated Date/Time: 10/27/2017 12:41 PM Laboratory Results 10/27/17 10:50 Red Blood Count 5.00, Mean Corpuscular Volume 80.2, Mean Corpuscular Hemoglobin 28.0, Mean Corpuscular Hemoglobin Concent 34.9, Mean Platelet Volume 9.8, Neutrophils (%) (Auto) 47.8, Lymphocytes (%) (Auto) 39.8, Monocytes (%) (Auto) 7.9, Eosinophils (%) (Auto) 4.3, Basophils (%) (Auto) 0.2, Neutrophils # (Auto) 2.01, Lymphocytes # (Auto) 1.67, Monocytes # (Auto) 0.33, Eosinophils # (Auto) 0.18, Basophils # (Auto) 0.01 10/27/17 10:50 Test 10/27/17 10:50 White Blood Count 4.20 K/uL (4.8-10.8) Red Blood Count 5.00 M/uL (4.7-6.1) Hemoglobin 14.0 g/dL (14.0-18.0) Hematocrit 40.1 % (42-52) Mean Corpuscular Volume 80.2 fL (80-100) Mean Corpuscular Hemoglobin 28.0 pg (25-34) Mean Corpuscular Hemoglobin Concent 34.9 g/dl (32-36) Platelet Count 249 K/uL (130-400) Mean Platelet Volume 9.8 fL (7.4-10.4) Neutrophils (%) (Auto) 47.8 % Lymphocytes (%) (Auto) 39.8 % Monocytes (%) (Auto) 7.9 % Eosinophils (%) (Auto) 4.3 % Basophils (%) (Auto) 0.2 % Neutrophils # (Auto) 2.01 K/uL (1.4-6.5) Lymphocytes # (Auto) 1.67 K/uL (1.2-3.4) Monocytes # (Auto) 0.33 K/uL (0.11-0.59) Eosinophils # (Auto) 0.18 K/uL (0-0.5) Basophils # (Auto) 0.01 K/uL (0-0.2) RDW Standard Deviation 36.6 fL (36.4-46.3) RDW Coefficient of Variation 12.6 % (11.5-14.5) Immature Granulocyte % (Auto) 0.0 % Immature Granulocyte # (Auto) 0.00 K/uL (0.00-0.02) Urine Color YELLOW Urine Appearance CLEAR (CLEAR) Urine pH 6.5 (4.5-7.5) Urine Specific [place] 1.002 (1.000-1.030) Urine Protein NEG (NEG) Urine Glucose (UA) NEG (NEG) Urine Ketones NEG (NEG) Urine Occult Blood NEG (NEG) Urine Nitrite NEG (NEG) Urine Bilirubin NEG (NEG) Urine Urobilinogen NEG (NEG) Urine Leukocyte Esterase NEG (NEG) Anion Gap 9.0 mmol/L (3-11) Est Creatinine Clear Calc Drug Dose 179.4 ml/min Estimated GFR () 135.1 Estimated GFR (Non- 116.6 BUN/Creatinine Ratio 3.7 (10-20) Calcium Level 8.7 mg/dl (8.5-10.1) Magnesium Level 2.1 mg/dl (1.8-2.4) Total Bilirubin 0.9 mg/dl (0.2-1) Direct Bilirubin 0.2 mg/dl (0-0.2) Aspartate Amino Transf (AST/SGOT) 15 U/L (15-37) Alanine Aminotransferase (ALT/SGPT) 33 U/L (12-78) Alkaline Phosphatase 52 U/L (45-117) Total Protein 7.5 gm/dl (6.4-8.2) Albumin 4.1 gm/dl (3.4-5.0) Lipase 97 U/L (73-393) Thyroid Stimulating Hormone (TSH) 1.730 uIu/ml (0.300-4.500) Laboratory results per my review. ED Course 0955: Past medical records reviewed. The patient was evaluated in room B4B. A complete history and physical examination was performed. 1229: The patient reports some left eyelid drooping for the past couple of months. 1327: I reassessed the patient at this time. He is feeling better and resting comfortably. I discussed the results and treatment plan with the patient. I answered all pertaining questions that he had. He expressed understanding and verbalized agreement. The patient will be discharged home. Medical Decision Differential diagnosis: Etiologies such as benign positional vertigo, dehydration, hypovolemia, anemia, tumor, infection, hypoglycemia, electrolyte abnormalities, cardiac sources, intracerebral event, toxicologic, neurologic, as well as others were entertained. This pt was evaluated and appeared to be in no distress. IV access was obtained and lab work was drawn. Pt was placed on the manager monitoring. PE is fairly unrevealing. Pt had multiple, seemingly evolving and somatic complaints. Abd XR series reveals an enteritis, although the pt states he has been using an unknown medication for his "ventriculitis." He believes this could be diverticulitis. I suspect he maybe using metamucil or miralax. Pt c/ o cold blood and a drooping left eye. He feels overwhelmingly tired. CT head was negative. Lab work is significant for a mild leukopenia, K of 3.4. I do not think wither is r/t today's visit. Pt was informed of the findings. He will f/u with PCP and psychiatrist. He was encouraged to consider restarting his psychiatric medications. Pt will return to the ED for worsening of symptoms or any medical concerns. Medication Reconcilliation Current Medication List: was personally reviewed by me Blood Pressure Screening Patient's blood pressure: Elevated blood pressure Blood pressure disposition: Elevated BP felt to be situational Impression Primary Impression: Irritable bowel syndrome Additional Impressions: Arm swelling Eyelid twitch Scribe Attestation The scribe's documentation has been prepared under my direction and personally reviewed by me in its entirety. I confirm that the note above accurately reflects all work, treatment, procedures, and medical decision making performed by me. Departure Information Dispostion Home / Self-Care Prescriptions No Active Prescriptions or Reported Meds Referrals Laureano Greene D.O. (PCP) Forms HOME CARE DOCUMENTATION FORM, IMPORTANT VISIT INFORMATION Patient Instructions My [facility] Additional Instructions Diagnosis: Irritable bowel syndrome, arm swelling, eyelid twitch Please drink plenty of clear fluids. Increase the fiber in your diet. Avoid laxatives. Follow-up with your physician this week for reevaluation. Return to the ER if worsening of symptoms or new medical concerns. Problem Qualifiers
[2017-10-27 11:15] LABS: BASO % 0.2 %; BASO ABS # 0.01 K/uL (0-0.2); EOS % 4.3 %; EOS ABS # 0.18 K/uL (0-0.5); HEMATOCRIT 40.1 % (42-52); LYMPH % 39.8 %; LYMPH ABS # 1.67 K/uL (1.2-3.4); MEAN CELL VOLUME 80.2 fL (80-100); MEAN CORPUSCULAR HGB CONC 34.9 g/dl (32-36); MEAN PLATELET VOLUME 9.8 fL (7.4-10.4); MONO % 7.9 %; MONO ABS # 0.33 K/uL (0.11-0.59); NEUT % 47.8 %; NEUT ABS # 2.01 K/uL (1.4-6.5); PLATELET COUNT 249 K/uL (130-400); RED CELL DISTRIBUTION WIDTH CV 12.6 % (11.5-14.5); RED CELL DISTRIBUTION WIDTH SD 36.6 fL (36.4-46.3)
[2017-10-27 11:32] LABS: ALBUMIN 4.1 gm/dl (3.4-5.0); CALCIUM 8.7 mg/dl (8.5-10.1); CREATININE 0.8 mg/dl (0.60-1.40); POTASSIUM 3.4 mmol/L (3.5-5.1)
--- NOTE | 2017-10-27 11:37 | DIAGNOSTIC IMAGING REPORT ---
ABDOMEN 2VIEW W/PA CHEST RTN HISTORY: 32 years-old Male abd pain, periodic upper extremity swelling acute generalized abdominal pain COMPARISON: [facility] 10/14/2015, CT abdomen and pelvis 07/26/2017 TECHNIQUE: PA view of the chest with erect and supine views of the abdomen FINDINGS: Cardiomediastinal and hilar silhouettes are within normal limits. There is no pneumothorax, pleural effusion, focal airspace consolidation or overt pulmonary edema. The bones of the chest appear grossly intact. No pneumoperitoneum or pneumatosis identified. The bowel gas pattern is nonobstructive. There are several scattered air-fluid levels noted throughout the abdomen, likely within loops of small bowel. No organomegaly or urolith. Prior laminectomy with posterior interbody shari and screw fusion and discectomy at L4-L5 and L5-S1. IMPRESSION: 1. No acute process of the chest. 2. Nonobstructive bowel gas pattern without pneumoperitoneum. 3. Multiple small bowel air-fluid levels throughout the mid abdomen suggest enteritis or ileus. The above report was generated using voice recognition software. It may contain grammatical, syntax or spelling errors. Electronically signed by: Alberto Castillo M.D. 10/27/2017 11:36 AM Dictated Date/Time: 10/27/2017 11:34 AM
[2017-10-27 11:43] LABS: TOTAL PROTEIN 7.5 gm/dl (6.4-8.2)
--- NOTE | 2017-10-27 12:44 | DIAGNOSTIC IMAGING REPORT ---
CT SCAN OF THE BRAIN WITHOUT IV CONTRAST CLINICAL HISTORY: Dizziness. Left eye twitching and drooping. COMPARISON STUDY: No priors. TECHNIQUE: Unenhanced axial CT scan of the brain is performed from the vertex to the skull base. A dose lowering technique was utilized adhering to the principles of ALARA. CT DOSE: 537.48 mGy.cm FINDINGS: Brain parenchyma: The brain parenchyma is normal in appearance. There is no hemorrhage, mass effect, or evidence of acute territorial ischemia by CT criteria. Lucas-white matter is preserved. No extra-axial fluid collection is seen. Ventricles, sulci, cisterns: Normal in configuration. Intracranial vasculature: The visualized intracranial vasculature at the skull base is normal in appearance. Calvarium: Unremarkable. Sinuses and mastoids: The visualized paranasal sinuses are clear. The mastoid air cells are well pneumatized. Orbits: The bony orbits are grossly intact. IMPRESSION: No acute intracranial abnormality. Electronically signed by: Donny Houston M.D. 10/27/2017 12:43 PM Dictated Date/Time: 10/27/2017 12:41 PM
[2017-10-27 13:41] VITALS: BP 145/78; PULSE 42; O2SAT 97
== END 2017-10-27 13:41 | disposition home or self-care (01) ==
LOC: C.EDB 09:37
DX: K58.9 Irritable bowel syndrome, unspecified (principal); M79.89 Other specified soft tissue disorders; H02.9 Unspecified disorder of eyelid; R42 Dizziness and giddiness; F31.9 Bipolar disorder, unspecified; F25.9 Schizoaffective disorder, unspecified; I10 Essential (primary) hypertension; M48.062 Spinal stenosis, lumbar region with neurogenic claudication; Z87.891 Personal history of nicotine dependence; Z88.8 Allergy status to other drugs, medicaments and biological substances; Z91.018 Allergy to other foods; Z88.6 Allergy status to analgesic agent; Z83.3 Family history of diabetes mellitus; Z82.49 Family history of ischemic heart disease and other diseases of the circulatory system; Z81.8 Family history of other mental and behavioral disorders

== ENCOUNTER → 2018-01-08 | Outpatient (CLI) | payer OTHER ==
[2018-01-08 16:32] LABS: EOS % 3.4 %; EOS ABS # 0.15 K/uL (0-0.5); HEMATOCRIT 42.7 % (42-52); HEMOGLOBIN 14.9 g/dL (14.0-18.0); IG# 0.01 K/uL (0.00-0.02); LYMPH ABS # 1.75 K/uL (1.2-3.4); MEAN CELL VOLUME 81.2 fL (80-100); MEAN CORPUSCULAR HEMOGLOBIN 28.3 pg (25-34); MEAN CORPUSCULAR HGB CONC 34.9 g/dl (32-36); MEAN PLATELET VOLUME 10.5 fL (7.4-10.4); MONO % 5.9 %; MONO ABS # 0.26 K/uL (0.11-0.59); NEUT % 50.5 %; NEUT ABS # 2.21 K/uL (1.4-6.5); PLATELET COUNT 252 K/uL (130-400); RED CELL DISTRIBUTION WIDTH SD 38.9 fL (36.4-46.3); WHITE BLOOD COUNT 4.38 K/uL (4.8-10.8)
[2018-01-08 16:45] LABS: HEMOGLOBIN A1C 5.3 % (4.5-5.6)
[2018-01-08 17:29] LABS: ALBUMIN 4.1 gm/dl (3.4-5.0); ALT/SGPT 42 U/L (12-78); AST/SGOT 18 U/L (15-37); BLOOD UREA NITROGEN 11 mg/dl (7-18); CALCIUM 8.7 mg/dl (8.5-10.1); CARBON DIOXIDE 26 mmol/L (21-32); GLUCOSE 84 mg/dl (70-99); POTASSIUM 4.1 mmol/L (3.5-5.1); SODIUM 139 mmol/L (136-145)
[2018-01-08 17:43] LABS: ALKALINE PHOSPHATASE 63 U/L (45-117); TOTAL PROTEIN 7.9 gm/dl (6.4-8.2)
== END | disposition home or self-care (01) ==
LOC: C.LAB 15:27
PROVIDERS: ATTEND Family Medicine
DX: G62.9 Polyneuropathy, unspecified (principal)